=== PATIENT | male | born 1930 | race Caucasian/White ===

== ENCOUNTER 2017-03-30 13:21 | Inpatient (IN) | payer OTHER, MEDICARE ==
[~2017-03-30] VITALS: Ht 177.8 cm; Wt 90.8 kg
[~2017-03-30 13:21] MED LIST: ASPEC81 PO; ATOR-22 PO; CLBCR15 EXT; FINA5TAB PO; FRRG PO; METO25TA3 PO; MULT-506 PO; OMEG10007 PO; WARF1TAB PO
--- NOTE | 2017-03-30 14:38 | History and Physical ---
History & Physical Date & Time of Service: Mar 30, 2017 at 14:38 Chief Complaint: Pain In Belly/Gall Bladder Primary Care Physician: Lonnie Cheung D.O. Social History Smoking Status: Former Smoker Marital Status: Housing status: lives with family Occupational Status: retired Immunizations History of Influenza Vaccine: Yes History of Tetanus Vaccine?: Yes History of Pneumococcal: Yes History of Hepatitis B Vaccine: No Multi-Drug Resistant Organisms History of MDRO: No Allergies Coded Allergies: Levofloxacin (Verified Allergy, Intermediate, HIVES, 03/30/17) Home Medications Scheduled Aspirin (Aspirin Ec), 81 MG PO DAILY Atorvastatin (Lipitor), 20 MG PO QPM Clobetasol Propionate (Clobetasol Propionate), 1 APPLN TOP PRN Finasteride (Proscar), 5 MG PO DAILY Fish Oil ([place]-3), 1,400 MG PO DAILY Metoprolol Succ (Toprol Xl) (Toprol-Xl), 25 MG PO QAM Multivitamin (Multivitamin), 1 TAB PO DAILY Omeprazole (Prilosec), 20 MG PO DAILY Physical Exam Vital Signs Date Time Temp Pulse Resp B/P (MAP) Pulse Ox O2 Delivery O2 Flow Rate FiO2 03/30/17 14:28 61 18 177/58 91 Room Air 03/30/17 13:28 37.4 89 18 152/76 92 Room Air Impression Assessment and Plan admit #[id number]
[2017-03-30] MEDS ORDERED: ONDANSETRON INJ 2 MG/ML 2 ML VIAL IV PRN (14:45)
[2017-03-30] MEDS ORDERED: PRLSR20 PO (15:36)
[2017-03-30] MEDS ORDERED: ASPI81TA28 PO (15:37)
[2017-03-30] MEDS ORDERED: CLBPO15 TOP (15:37)
[2017-03-30 15:59] LABS: BASO % 0.1 %; BASO ABS # 0.01 K/uL (0-0.2); COMPLETE YES; HEMATOCRIT 46.4 % (42-52); IG% 0.1 %; LYMPH % 8.9 %; LYMPH ABS # 0.67 K/uL (1.2-3.4); MEAN CELL VOLUME 97.3 fL (80-100); MEAN CORPUSCULAR HEMOGLOBIN 32.5 pg (25-34); MEAN CORPUSCULAR HGB CONC 33.4 g/dl (32-36); MONO % 5.3 %; NEUT % 85.6 %; PLATELET COUNT 148 K/uL (130-400); RED BLOOD COUNT 4.77 M/uL (4.7-6.1); WHITE BLOOD COUNT 7.49 K/uL (4.8-10.8)
--- NOTE | 2017-03-30 16:04 | EMERGENCY ROOM VISIT NOTE ---
History First contact with patient: 13:36 Chief Complaint: ABDOMINAL PAIN Stated Complaint: PAIN IN BELLY/GALL BLADDER Nursing Triage Summary: Abdominal pain, nausea, an episode of vomiting last evening. states they were at [facility] yesterday and were told that his gallbladder is infected and needs to come out. History of Present Illness The patient is a 86 year old male who presents to the Emergency Room with complaints of upper abdominal pain associated with nausea and vomiting which began approximately 24 hours ago. The pain began yesterday late afternoon, early evening, and the patient was seen along [facility] for evaluation of his discomfort. He states he had a CT scan and labs completed while at [facility]. The patient was discharged from the hospital and instructed to follow up outpatient with his PCP. He did see his PCP this morning, and had a HIDA scan performed. This was suggestive of Acute cholecystitis and the patient was advised to go to whichever hospital he may wish to be admitted to for surgery and removal of the gallbladder. The patient states he decided to come to [facility]. His PCP to contact the ER regarding findings and plan at this time. He states he is now experiencing some minimal abdominal pain , but nothing like he experienced last night. He rates the pain 2-3/10 and describes it as achy. He states this morning, he did have an IV established and the lab work completed last night. The patient denies any chest pain, dizziness, nausea or vomiting at this time, difficulty breathing, headache, diarrhea, constipation, back pain, or other symptoms. He states his symptoms are that are now than they had been yesterday. He states yesterday, he was given "2 shots" for pain. He does report history of gallstones which were found "a few months ago" at [facility]. He states when he went home that night, he drank milk of magnesia and his symptoms improved until now. Review of Systems A complete 10 point review of systems was reviewed with the patient with pertinent positives and negatives as per history of present illness. All else were negative. Past Medical/Surgical History Medical Problems: (1) Cholecystitis Social History Smoking Status: Former Smoker Smokeless Tobacco Use: No Alcohol Use: none Drug Use: none Marital Status: Housing Status: lives with family Occupation Status: retired Current/Historical Medications Scheduled Aspirin (Aspirin Ec), 81 MG PO DAILY Atorvastatin (Lipitor), 20 MG PO QPM Clobetasol Propionate (Clobetasol Propionate), 1 APPLN TOP PRN Finasteride (Proscar), 5 MG PO DAILY Fish Oil ([place]-3), 1,400 MG PO DAILY Metoprolol Succ (Toprol Xl) (Toprol-Xl), 25 MG PO QAM Multivitamin (Multivitamin), 1 TAB PO DAILY Omeprazole (Prilosec), 20 MG PO DAILY Allergies None Physical Exam Vital Signs Date Time Temp Pulse Resp B/P (MAP) Pulse Ox O2 Delivery O2 Flow Rate FiO2 03/30/17 14:28 61 18 177/58 91 Room Air 03/30/17 13:28 37.4 89 18 152/76 92 Room Air Physical Exam VITALS: Vitals are noted on the nurse's note and reviewed by myself. Vital signs stable. GENERAL: This is a pleasant 86-year-old white male, in no acute distress, nondiaphoretic, well-developed well-nourished. SKIN: The skin was without rashes, erythema, edema, or bruising. There is no tenting of the skin. Capillary reflex less than 2 seconds. HEAD: Normocephalic atraumatic. EARS: External auditory canals clear, tympanic membranes pearly schmidt without erythema or effusion bilaterally. EYES: Pupils equal round and reactive to light and accommodation. Conjunctivae without injection, sclerae without icterus. Extraocular movements intact. NOSE: Patent, turbinates without inflammation or discharge. No sinus tenderness. MOUTH: Mucous membranes moist. Tonsils are not enlarged. Pharynx without erythema or exudate. Uvula midline. Airway patent. Tongue does not deviate. NECK: Supple without nuchal rigidity. No lymphadenopathy. No thyromegaly. Cervical spine is nontender. No JVD. HEART: Regular rate and rhythm without murmurs gallops or rubs. LUNGS: Clear to auscultation bilaterally without wheezes, rales or rhonchi. No dullness to percussion. No retractions or accessory muscle use. ABDOMEN: Positive bowel sounds x 4. Normal tympanic percussion. Tenderness noted in RUQ and Epigastric area. Distended, but soft, without masses or organomegaly. Jordan sign positive. No guarding or rebound tenderness. MUSCULOSKELETAL: No muscle atrophy, erythema, or edema noted. Full range of motion without joint tenderness in all extremities. No tenderness to palpation. Normal gait. Strength 5/5 throughout. NEURO: Patient was alert and oriented to person place and time. Normal sensation to light and sharp touch. Deep tendon reflexes 2+ throughout. No focal neurological deficits. Medical Decision & Procedures ER Provider Diagnostic Interpretation: Reviewed imaging studies performed outpatient at [facility]. HIDA scan did not visualize the gallbladder, however findings were consistent with cystic duct obstruction vs. acute cholecystitis. CT Scan with contrast was reviewed which did show cholecystitis with pericholecystic fluid. Pt's CBC yesterday revealed no acute anemia, thrombocytopenia, leukocytosis. CBC today reveals no acute anemia, leukocytosis, thrombocytopenia. CMP reveals elevated AST of 411, elevated ALT 235, and elevated Alk Phos of 150. Electrolytes and renal function without abnormalities. Laboratory Results Medical Decision This is an 86-year-old white male who has had a complete workup performed over the past 24 hours at [facility] in the emergency department and outpatient. At this time, his abdominal pain is minimal, however due to positive imaging studies, he was sent emergency Department for admission and possible surgery for acute cholecystitis. I did contact [facility] to obtain reports, which were faxed here. I reviewed all records from the patient's ED visit last night. Due to findings consistent with acute cholecystitis, I consulted with Dr. Correa, the general surgeon, regarding admitting the patient and he states he will see the patient today, but perform the procedure tomorrow. He requested that the patient be admitted under the hospitalist group. I spoke with [facility] Hospitalists regarding admission and they agree to admit the patient. Basic labs were drawn and an IV established. The hospitalist states he will handle management overnight until surgery tomorrow. Please see the hospitalist dictation for further management and care. Differential diagnosis includes: Acute cholecystitis, gallstones, pancreatitis, cholangitis, acute gastroenteritis, hepatic disease, GERD, and others. Medication Reconcilliation Current Medication List: was personally reviewed by me Blood Pressure Screening Patient's blood pressure: Normal blood pressure Impression Primary Impression: Acute cholecystitis Departure Information Dispostion Admitted as an inpatient Condition GOOD Referrals Lonnie Cheung D.O. (PCP) Patient Instructions My [facility]
--- NOTE | 2017-03-30 16:06 | Surgery Consultation ---
Consultation Date of Consultation: Mar 30, 2017. Attending Physician: History of Present Illness pt is a 86 year old male who presents to ER for 1 day RUQ pain with nausea and vomiting, the pain is sharp. the pain is located at RUQ, pt denies fever, no chest pain, no diarrhea, pt had CT scan and HIDA scan at other hospital DX acute cholecystitis, pt comes to this hospital for cholecystectomy. Social History Smoking Status: Former Smoker Smokeless Tobacco Use: No Alcohol Use: occasionally Drug Use: none Marital Status: Occupation Status: retired Allergies Coded Allergies: Levofloxacin (Verified Allergy, Intermediate, HIVES, 03/30/17) Home Medications Scheduled Aspirin (Aspirin Ec), 81 MG PO DAILY Atorvastatin (Lipitor), 20 MG PO QPM Clobetasol Propionate (Clobetasol Propionate), 1 APPLN TOP PRN Finasteride (Proscar), 5 MG PO DAILY Fish Oil ([place]-3), 1,400 MG PO DAILY Metoprolol Succ (Toprol Xl) (Toprol-Xl), 25 MG PO QAM Multivitamin (Multivitamin), 1 TAB PO DAILY Omeprazole (Prilosec), 20 MG PO DAILY Current Inpatient Medications Current Inpatient Medications Medications (Trade) Dose Ordered Sig/Nayely Route Start Time Stop Time Status Last Admin Dose Admin Ondansetron HCl (Zofran Inj) 4 mg Q6H PRN IV 03/30/17 14:45 04/29/17 14:44 Ampicillin Sodium/ Sulbactam Sodium 1500 mg/Sodium Chloride 104 ml @ 200 mls/hr Q6H IV 03/30/17 14:45 04/09/17 14:44 UNV Metoprolol Succinate (Toprol Xl Tab) 25 mg QAM PO 03/31/17 09:00 04/30/17 08:59 Multivitamins (Multivitamin Tab) 1 tab DAILY PO 03/31/17 09:00 04/30/17 08:59 Miscellaneous Information (Order Awaiting Action) 1 ea QS N/A 03/31/17 08:00 04/30/17 07:59 Potassium Chloride/Sodium Chloride 1,000 ml @ 110 mls/hr Q9H6M IV 03/30/17 15:15 04/29/17 15:14 UNV Morphine Sulfate (MoRPHine SULFATE INJ) 2 mg Q4 PRN IV 03/30/17 15:15 04/13/17 15:14 Review of Systems Constitutional: No fever, No chills, No sweats, No weight loss, No weakness, No fatigue, No problem reported Eyes: No worsening of vision, No eye pain, No redness, No discharge, No diplopia, No problem reported ENT: No hearing loss, No unusual epistaxis, No nasal symptoms, No sore throat, No tinnitus, No dental problems, No trouble swallowing, No problem reported Respiratory: No cough, No sputum, No wheezing, No shortness of breath, No dyspnea on exertion, No dyspnea at rest, No hemoptysis, No problem reported Cardiovascular: No chest pain, No orthopnea, No PND, No edema, No claudication , No palpitations, No problem reported Abdomen: + pain, + nausea, + vomiting Musculoskeletal: No joint pain, No muscle pain, No swelling, No calf pain, No problem reported Genitourinary - Male: No hematuria, No dysuria, No urinary frequency, No urinary urgency, No urinary hesitancy, No urinary retention, No urinary incontinence, No penile discharge, No lesions, No impotence, No problem reported Neurologic: No memory loss, No paralysis, No weakness, No numbness/tingling, No vertigo, No balance problems, No problem reported Psychiatric: No depression symptoms, No anhedonism, No anxiety, No insomnia, No substance abuse, No problem reported Endocrine: No fatigue, No excessive thirst, No excessive urination, No problem reported Hematologic / Lymphatic: No abnormal bleeding/bruising, No clotting problems, No swollen lymph nodes, No night sweats, No problem reported Physical Exam Date Time Temp Pulse Resp B/P (MAP) Pulse Ox O2 Delivery O2 Flow Rate FiO2 03/30/17 14:28 61 18 177/58 91 Room Air 03/30/17 13:28 37.4 89 18 152/76 92 Room Air General Appearance: WD/WN, + mild distress Head: normocephalic Eyes: normal inspection ENT: normal ENT inspection Neck: supple, no JVD Respiratory/Chest: chest non-tender, lungs clear, normal breath sounds, no respiratory distress Cardiovascular: regular rate, rhythm, no edema, no gallop, no JVD, no murmur Abdomen/GI: normal bowel sounds, soft, + tenderness (Tenderness at RUQ, no rebound pain, ) Extremities/Musculoskelatal: normal inspection, no calf tenderness, normal capillary refill Neurologic/Psych: no motor/sensory deficits, alert, normal mood/affect Skin: normal color, warm/dry, no rash Laboratory Results Last 24 Hours Test 03/30/17 15:33 Assessment & Plan pt is a 86 jayna old male with one day history RUQ pain, pt had CT scan and HIDA scan- acute cholecystitis, Plan, pt will be admitted ti hospital by hospitalist, I recommend to do laparoscopic cholecystectomy, possible open or cholangiogram tomorrow, D/W benefits, risks and alternatives of the procedure, the risks - infection, bleeding, injury CBD, Bowel, NC, stroke, DVT, , pt and his understood, they agree with [facility] plan, I answered all questions, EKG, IV antibiotic, contorl pain, NPO MN
[2017-03-30 16:20] VITALS: BP 158/75; PULSE 69; TEMP 37.4; TEMP 38.1; O2SAT 91; Ht 177.8 cm; Wt 90.8 kg
[2017-03-30 16:25] LABS: ALB/GLOB RATIO 0.9 (0.9-2); BUN/CREATININE RATIO 23.1 (10-20); CALCIUM 9.3 mg/dl (8.5-10.1); CREATININE 1.01 mg/dl (0.60-1.40); POTASSIUM 4.4 mmol/L (3.5-5.1)
[2017-03-30 16:55] LABS: INR 1.1 (0.9-1.1); PARTIAL THROMBOPLASTIN RATIO 1.2; PROTHROMBIN TIME (PATIENT) 11.6 SECONDS (9.0-12.0)
--- NOTE | 2017-03-30 17:12 | HISTORY & PHYSICAL EXAMINATION ---
DATE OF ADMISSION: 03/30/2017 CHIEF COMPLAINT: Right upper abdominal pain. HISTORY OF PRESENT ILLNESS: The patient is a pleasant 86-year-old male who was in his usual state of health until late yesterday afternoon. Maybe around 05:00 or so, he noted some right lower rib cage pain and then it progressed to lower in his abdomen. It is fairly sharp, fairly intense and it caused him to break out in a sweat. He does not note nausea or vomiting. He does not note fevers or chills. He was at a meeting. He had his friend bring him home from the meeting and he was just generally not feeling well afterwards. He then had a prompt evaluation by his PCP including HIDA scan and the HIDA scan was consistent with cholecystitis. His PCP contacted him to come to the ER and here, currently his pain is under control. He is not diaphoretic. He does not have any nausea. He does not have any chest pain. REVIEW OF SYSTEMS: Negative for anything even remotely reminiscent of his cardiac symptoms. He denies any newer worse shortness of breath with exertion in the recent past. REVIEW OF SYSTEMS: Otherwise negative, except for as above. PAST MEDICAL HISTORY: Includes coronary artery disease with an MO in 1995 and CABG in 2002, osteoarthritis, BPH status post TURP, hyperlipidemia, skin cancer, sleep apnea and hypertension. PAST SURGICAL HISTORY: CABG, orthopedic surgeries including a left total knee and right total knee, eyelid surgery, right hand cyst removal and a TURP. ALLERGIES: None. FAMILY HISTORY: None of significance. Particularly, he denies biliary disease. SOCIAL HISTORY: No notable significant tobacco, alcohol or drugs. Lives in the [place] area. MEDICATIONS: Finasteride 5 mg daily, metoprolol succinate 25 mg I believe daily, atorvastatin 20 mg daily, aspirin 81 mg daily, multivitamin daily, Krill oil with omega-3 at 500 mg, clobetasol cream as needed and omeprazole 20 mg I believe daily. ALLERGIES: INCLUDE LEVOFLOXACIN. PHYSICAL EXAMINATION: VITAL SIGNS: Temperature 37.4, pulse 89, respiratory rate 18, blood pressure 152/76 and 92% on room air. GENERAL: He is awake, alert, and oriented x3, pleasant, in no acute distress. HEENT: Normocephalic and atraumatic. Mucous membranes are moist. CARDIOVASCULAR: Regular without rubs, murmurs, or gallops. LUNGS: Clear to auscultation bilaterally. No rales, rhonchi, or wheezes with good effort. ABDOMEN: Soft and nondistended, but he does have right upper quadrant tenderness to palpation including a bit of involuntary guarding on even medium palpation. There is fortunately no resting rigidity and the remainder of his abdomen is benign. EXTREMITIES: Show no cyanosis, clubbing or edema. No calf tenderness. SKIN: Shows no rashes. No pallor or icterus. NEUROLOGIC: Shows cranial nerves II through XII to be grossly intact. Gross motor and sensory are intact. MENTAL STATE: Shows good recent and remote recall. Normal mood and affect. Good judgment and insight. MUSCULOSKELETAL: Shows no gross lesions. LABS AND DIAGNOSTICS: Pending at time of my evaluation. By report, he has a markedly positive HIDA scan. We will ask for records on this. ASSESSMENT AND PLAN: 1. Acute cholecystitis both by symptoms and by HIDA. We will check CBC and CMP to evaluate for anything more ominous, such as signs or symptoms of cholangitis. Fortunately without any overt jaundice or fevers, it is highly unlikely. We will initiate Unasyn as the recommendation of surgery cover him with antibiotics. We will consult general surgery with anticipation of cholecystectomy and keep him n.p.o. Depending on his labs and his clinical course, obviously further recommendations will be made throughout his stay. 2. Coronary artery disease. Fortunately, this appears to be extremely stable and he appears to be a very medically acceptable probably moderate to low moderate risk for surgery. Would continue his metoprolol and it appears okay to hold his aspirin and Lipitor for now, would resume them postop as quickly as he is safe. 3. Hyperlipidemia. Continue his Lipitor. 4. Hypertension. Continue his metoprolol. 5. Benign prostatic hypertrophy. Hold finasteride for now. Resume it postop once he is able to take p.o. 6. Deep venous thrombosis prophylaxis, Lovenox. Okay to hold for surgery.
[2017-03-30] MEDS: SODIUM CHLOR 0.45% + 20MEQ KCL 1,000 ML IV SCH (17:19)
[2017-03-30 17:22] VITALS: TEMP 39.4
[2017-03-30] MEDS ORDERED: ACETAMINOPHEN 325 MG TAB ONE (17:26)
--- NOTE | 2017-03-30 17:31 | Surgery Progress Note ---
Surgery Progress Note Date of Service Mar 30, 2017. Subjective pt's Total Bilirubin is 3.6 Objective Vital Signs: Date Time Temp Pulse Resp B/P (MAP) Pulse Ox O2 Delivery O2 Flow Rate FiO2 03/30/17 16:20 38.1 69 18 158/75 91 Room Air 03/30/17 16:20 91 Room Air 03/30/17 16:20 37.4 69 18 158/75 (102) 91 Room Air 03/30/17 16:01 63 18 173/56 93 Room Air 03/30/17 14:28 61 18 177/58 91 Room Air 03/30/17 13:28 37.4 89 18 152/76 92 Room Air General Appearance: WD/WN, + mild distress Head: normocephalic Neck: supple, no JVD Respiratory/Chest: chest non-tender, lungs clear Cardiovascular: regular rate, rhythm, no edema, no gallop, no JVD, no murmur Abdomen: + tenderness (at RUQ) Laboratory Results: Results Past 24 Hours Test 03/30/17 15:33 03/30/17 16:30 Range/Units White Blood Count 7.49 4.8-10.8 K/uL Red Blood Count 4.77 4.7-6.1 M/uL Hemoglobin 15.5 14.0-18.0 g/dL Hematocrit 46.4 42-52 % Mean Corpuscular Volume 97.3 80-100 fL Mean Corpuscular Hemoglobin 32.5 25-34 pg Mean Corpuscular Hemoglobin Concent 33.4 32-36 g/dl Platelet Count 148 130-400 K/uL Mean Platelet Volume 10.0 7.4-10.4 fL Neutrophils (%) (Auto) 85.6 % Lymphocytes (%) (Auto) 8.9 % Monocytes (%) (Auto) 5.3 % Eosinophils (%) (Auto) 0.0 % Basophils (%) (Auto) 0.1 % Neutrophils # (Auto) 6.40 1.4-6.5 K/uL Lymphocytes # (Auto) 0.67 1.2-3.4 K/uL Monocytes # (Auto) 0.40 0.11-0.59 K/uL Eosinophils # (Auto) 0.00 0-0.5 K/uL Basophils # (Auto) 0.01 0-0.2 K/uL RDW Standard Deviation 51.7 36.4-46.3 fL RDW Coefficient of Variation 14.5 11.5-14.5 % Immature Granulocyte % (Auto) 0.1 % Immature Granulocyte # (Auto) 0.01 0.00-0.02 K/uL Sodium Level 138 136-145 mmol/L Potassium Level 4.4 3.5-5.1 mmol/L Chloride Level 102 98-107 mmol/L Carbon Dioxide Level 28 21-32 mmol/L Anion Gap 8.0 3-11 mmol/L Blood Urea Nitrogen 23 7-18 mg/dl Creatinine 1.01 0.60-1.40 mg/dl Est Creatinine Clear Calc Drug Dose 61.7 ml/min Estimated GFR () 78.8 Estimated GFR (Non- 68.0 BUN/Creatinine Ratio 23.1 10-20 Random Glucose 173 70-99 mg/dl Calcium Level 9.3 8.5-10.1 mg/dl Total Bilirubin 3.6 0.2-1 mg/dl Aspartate Amino Transf (AST/SGOT) 411 15-37 U/L Alanine Aminotransferase (ALT/SGPT) 235 12-78 U/L Alkaline Phosphatase 150 45-117 U/L Total Protein 7.6 6.4-8.2 gm/dl Albumin 3.6 3.4-5.0 gm/dl Globulin 4.0 2.5-4.0 gm/dl Albumin/Globulin Ratio 0.9 0.9-2 Chemistry Specimen Hemolysis Prothrombin Time 11.6 9.0-12.0 SECONDS Prothromb Time International Ratio 1.1 0.9-1.1 Activated Partial Thromboplast Time 30.6 21.0-31.0 SECONDS Partial Thromboplastin Ratio 1.2 Assessment & Plan Base on (T ) bilirubin is 3.6, and pt has T 39.4 DX CBD stone, cholangitis tylenol 650 mg po q6h prn for T>38.5 start Zosyn 3.375 gm IV q6h GI consult for ERCP cancel lap masood for tomorrow, repeat labs in am,
[2017-03-30] MEDS ORDERED: ACETAMINOPHEN 325 MG TAB PO ONE (17:45)
[2017-03-30] MEDS ORDERED: PIPERACILL/TAZOBAC CONSULT ACTIVE PRN (17:45)
[2017-03-30] MEDS ORDERED: PIPERACILL/TAZOBAC IV 3.375 GM in DEXTROSE 5% 100ML 100 ML IV ONE (18:00)
[2017-03-30] MEDS ORDERED: AMPICILLIN/SULBACTAM SOD INJ 1,500 MG in SODIUM CHLORIDE 0.9% 100ML 100 ML IV SCH (18:00)
[2017-03-30 18:10] VITALS: TEMP 38.6
[2017-03-30] MEDS ORDERED: MoRPHine SULFATE 4 MG/ML 1 ML CARP\\VIAL IV PRN (19:00)
[2017-03-30] MEDS: MoRPHine SULFATE 2 MG/ML CARP IV PRN (19:04)
--- NOTE | 2017-03-30 20:35 | Progress Note ---
Progress Note Date of Service Mar 30, 2017. Progress Note d/w dr buckley - fever, elevated bilirubin - we are both in agreement that cholangitis appearing to be working dx with those two new findings. GI consulted for biliary eval/treat, abx broadened to zosyn pt seen/revisited, explained how fever and bili change situation. he expresses understanding, clinically continues to appear stable. dtr had called asking to speak to me - he gave permission called dtr tia sin - [facility] in [place]. gave callback # as [phone] - answering person introduced themselves as Dr Sin's answering service, although was able to quickly get pt's dtr. 15+ min call. initially she was very wary of care, feeling like things might be being rushed and noting that she was afraid of her father having ERCP, "i've seen terrible pancreatitis after ERCPs, where people are in the hospital for four months" and asking if we had capabilities to do needed procedures and/or MRCP if necessary -i discussed her father's situation, and that typically w cholangitis, abx and ERCP is preferred treatment, and then often cholecystectomy is delayed either during the hospital stay or even as outpt a few weeks later. discussed that ERCP done here commonly, and that while i don't know our exact complication rates, i rarely take care of post-ERCP pancreatitis and the cases i remember here have been mild. d/w her that GI eval needs to take place and then decision will be made for MRCP vs ERCP. after several minutes, her tone softened and she appeared to feel more comfortable with care here. expressed appreciation of call. d/w GI who will eval and determine next steps w ERCP vs MRCP pt stable.
--- NOTE | 2017-03-30 20:46 | Gastrointestinal Consultation ---
Gastrointestinal Consultation Date of Consultation: Mar 30, 2017 History of Present Illness Patient is a 86 year old male who presented from [place] with a one day hx of ruq abdominal pain. He states that over the last few months this is is second attack of acute onset ruq abdominal pain, pain sudden onset, radiates across his abdomen and has persisted in a crescendo/decrescendo pattern. Has accompanied nausea without emesis, no diarrhea, melena. HE also c/o of fevers, mild chills, and bloating. He presented to ER last shahnaz at [place], underwent CT with ? acute cholecystitis, and Labs other than WBC ct were normal. WBC was 10, bilirubin was 1.1 and AST/ALT/AP were normal. He was discharged from ER last shahnaz, he returned to Hospital this morn for a HIDA scan, this failed to show filling of the cystic duct and he elected to come to [facility] for further care. Labs here show increase of bilirubin to 3.6, AST/ALT/AP all elevated and he has now developed fevers. No mental status changes, no hemodynamic changes. Past Medical/Surgical History Medical Problems: (1) Acute cholecystitis Status: Acute Social History Smoking Status: Never Smoker Alcohol Use: none Drug Use: none Marital Status: Housing Status: lives with family Occupation Status: retired Allergies Coded Allergies: Levofloxacin (Verified Allergy, Intermediate, HIVES, 03/30/17) Current Medications Home Meds and Scripts Medications Dose Route/Sig Max Daily Dose Days Date Category Aspirin Ec (Aspirin) 81 Mg Tab 81 Mg PO DAILY 03/30/17 Reported Clobetasol Propionate 45 Appln/15 Gm Oint 1 Appln TOP PRN 03/30/17 Reported Prilosec (Omeprazole) 20 Mg Capcr 20 Mg PO DAILY 03/30/17 Reported Proscar (Finasteride) 5 Mg Tab 5 Mg PO DAILY 01/23/14 Reported [place]-3 (Fish Oil) 1 Ea Cap 1,400 Mg PO DAILY 09/26/10 Reported Multivitamin (Multivitamins) Tab 1 Tab PO DAILY 09/26/10 Reported Lipitor (Atorvastatin Calcium) 20 Mg Tab 20 Mg PO QPM 09/26/10 Reported Toprol-Xl (Metoprolol Succinate) 25 Mg Tabcr 25 Mg PO QAM 09/26/10 Reported Review of Systems Constitutional: + see HPI Eyes: No see HPI, No worsening of vision, No eye pain, No redness, No discharge , No diplopia, No problem reported ENT: No see HPI, No hearing loss, No unusual epistaxis, No nasal symptoms, No sore throat, No tinnitus, No dental problems, No trouble swallowing, No pain on swallowing, No problem reported Respiratory: No see HPI, No cough, No sputum, No wheezing, No shortness of breath, No dyspnea on exertion, No dyspnea at rest, No hemoptysis, No problem reported Cardiac: No see HPI, No chest pain, No orthopnea, No PND, No edema, No claudication, No palpitations, No problem reported Abdomen: + see HPI, No pain, No nausea, No vomiting, No diarrhea, No constipation, No GI bleeding, No dysphagia, No odynophagia, No acolic stools, No jaundice, No dark urine, No problem reported Psych: No see HPI, No depression symptoms, No anhedonism, No anxiety, No insomnia, No substance abuse, No problem reported Physical Exam Date Time Temp Pulse Resp B/P (MAP) Pulse Ox O2 Delivery O2 Flow Rate FiO2 03/30/17 18:10 38.6 03/30/17 17:22 39.4 03/30/17 16:20 38.1 69 18 158/75 91 Room Air 03/30/17 16:20 91 Room Air 03/30/17 16:20 37.4 69 18 158/75 (102) 91 Room Air 03/30/17 16:01 63 18 173/56 93 Room Air 03/30/17 14:28 61 18 177/58 91 Room Air 03/30/17 13:28 37.4 89 18 152/76 92 Room Air General Appearance: WD/WN, no apparent distress Eyes: normal inspection Neck: supple Respiratory/Chest: chest non-tender, lungs clear Cardiovascular: regular rate, rhythm, no edema Abdomen: normal bowel sounds, soft, + pertinent finding (mild tenderness in the RUQ) Extremities: normal range of motion Neurologic/Psych: mailmaster II-XII nml as tested Laboratory Results Last 24 Hours Test 03/30/17 15:33 03/30/17 16:30 White Blood Count 7.49 K/uL Red Blood Count 4.77 M/uL Hemoglobin 15.5 g/dL Hematocrit 46.4 % Mean Corpuscular Volume 97.3 fL Mean Corpuscular Hemoglobin 32.5 pg Mean Corpuscular Hemoglobin Concent 33.4 g/dl Platelet Count 148 K/uL Mean Platelet Volume 10.0 fL Neutrophils (%) (Auto) 85.6 % Lymphocytes (%) (Auto) 8.9 % Monocytes (%) (Auto) 5.3 % Eosinophils (%) (Auto) 0.0 % Basophils (%) (Auto) 0.1 % Neutrophils # (Auto) 6.40 K/uL Lymphocytes # (Auto) 0.67 K/uL Monocytes # (Auto) 0.40 K/uL Eosinophils # (Auto) 0.00 K/uL Basophils # (Auto) 0.01 K/uL RDW Standard Deviation 51.7 fL RDW Coefficient of Variation 14.5 % Immature Granulocyte % (Auto) 0.1 % Immature Granulocyte # (Auto) 0.01 K/uL Sodium Level 138 mmol/L Potassium Level 4.4 mmol/L Chloride Level 102 mmol/L Carbon Dioxide Level 28 mmol/L Anion Gap 8.0 mmol/L Blood Urea Nitrogen 23 mg/dl Creatinine 1.01 mg/dl Est Creatinine Clear Calc Drug Dose 61.7 ml/min Estimated GFR () 78.8 Estimated GFR (Non- 68.0 BUN/Creatinine Ratio 23.1 Random Glucose 173 mg/dl Calcium Level 9.3 mg/dl Total Bilirubin 3.6 mg/dl Aspartate Amino Transf (AST/SGOT) 411 U/L Alanine Aminotransferase (ALT/SGPT) 235 U/L Alkaline Phosphatase 150 U/L Total Protein 7.6 gm/dl Albumin 3.6 gm/dl Globulin 4.0 gm/dl Albumin/Globulin Ratio 0.9 Chemistry Specimen Hemolysis Prothrombin Time 11.6 SECONDS Prothromb Time International Ratio 1.1 Activated Partial Thromboplast Time 30.6 SECONDS Partial Thromboplastin Ratio 1.2 Impression Patient is a 86 year old male with acute onset of ruq abdominal pain and concern of acute cholecystitis and likely biliary obstruction. In the last 24 hrs has had increasing LFT's as well as developed a fever, concerning for biliary obstruction. CT scan does not comment on biliary tree, but given his clinical findings, he has a high probability of biliary obstruction. Plan 1. Continue IVF and NPO 2. IV abx has been given with Zosyn 3. Plan for ERCP in the 7:[address] Toledo If has clinical decline, please call GI vice president mission integration for assistance and will expedite ERCP Call with questions
[2017-03-30 22:45] VITALS: BP 123/66; PULSE 76; TEMP 36.8; O2SAT 94
[2017-03-31] VITALS (10 sets, daily range): BP systolic 124–164; BP diastolic 37–75; PULSE 52–78; TEMP 36.4–37.1; O2SAT 91–98
[2017-03-31] MEDS: SODIUM CHLOR 0.45% + 20MEQ KCL 1,000 ML IV SCH (02:03)
--- NOTE | 2017-03-31 02:13 | EMERGENCY ROOM VISIT NOTE ---
ED Visit Note First contact with patient: 13:36 HPI: 86M with dx of cholecystitis on OSH CT and HIDA scan. Plan: PA d/w surgery with planned procedure for tomorrow. Admit. IVF, ABX. I reviewed the patient's past medical history, medications, and visit nursing notes. I discussed the case with the physician home care assistant and agree with the findings and plan as documented in the physician assistants note.
[2017-03-31] MEDS ORDERED: EpHEDrine SULFATE INJ 50 MG/ML AMP IV PRN (07:15)
[2017-03-31] MEDS ORDERED: FENTANYL CITRATE INJ 50 MCG/1 ML 2 ML VIAL IV PRN (07:15)
[2017-03-31] MEDS ORDERED: ONDANSETRON INJ 2 MG/ML 2 ML VIAL IV PRN (07:15)
[2017-03-31] MEDS ORDERED: ATROPINE SULFATE 0.1 MG/ML 5ML SYR IV PRN (07:15)
[2017-03-31] MEDS ORDERED: HYDROmorphone INJ 1 MG/ML SYR IV PRN (07:15)
[2017-03-31] MEDS ORDERED: FENTANYL CITRATE INJ 50 MCG/1 ML 2 ML VIAL ONE (07:56)
--- NOTE | 2017-03-31 07:56 | History & Physical Bridge Note ---
H&P Re-Evaluation Bridge Note: I have examined the patient, reviewed the History & Physical and in the interval since the performance of the History & Physical I have noted the following changes of clinical significance: No changes noted
[2017-03-31] MEDS ORDERED: INDOMETHACIN 50 MG SUPP PR ONE ×2 (07:58→08:00)
[2017-03-31] MEDS: PIPERACILL/TAZOBAC IV 3.375 GM in DEXTROSE 5% 100ML 100 ML IV SCH ×5 (08:00→23:24)
[2017-03-31 08:19] LABS: ALB/GLOB RATIO 0.9 (0.9-2); BUN/CREATININE RATIO 24.1 (10-20); CALCIUM 8.6 mg/dl (8.5-10.1); CREATININE 1.11 mg/dl (0.60-1.40); POTASSIUM 4.4 mmol/L (3.5-5.1)
[2017-03-31] MEDS ORDERED: SUCCINYLCHOLINE CHLORIDE 20 MG/ML 10 ML VIAL IV ONE (08:31)
[2017-03-31] MEDS ORDERED: ONDANSETRON INJ 2 MG/ML 2 ML VIAL ONE (08:31)
[2017-03-31] MEDS ORDERED: LIDOCAINE HCL 2% 2 ML VIAL (20MG/ML) ONE (08:31)
[2017-03-31] MEDS ORDERED: PROPOFOL IV EMULSION 10 MG/ML 20 ML VIAL IV ONE (08:31)
[2017-03-31] MEDS: ENOXAPARIN 40 MG/0.4 ML SYR SQ SCH (09:00)
[2017-03-31] MEDS: METOPROLOL SUCC 25MG EXT REL TAB PO SCH ×2 (09:00→14:24)
[2017-03-31] MEDS: MULTIVITAMIN TAB PO SCH (09:00)
--- NOTE | 2017-03-31 10:24 | DIAGNOSTIC IMAGING REPORT ---
ERCP BILIARY DUCTAL CLINICAL HISTORY: Intraoperative ERCP. Patient in need of pancreatic stenting. COMPARISON STUDY: None FLUOROSCOPY TIME: 3 minutes 11 seconds. NUMBER OF FLUOROSCOPIC IMAGES: 18 FINDINGS: Fluoroscopic spot images from an ERCP are provided for interpretation. The pancreatic duct was cannulated and a pancreatic enteric stent was placed. The common bile duct was then cannulated. Initial images demonstrate irregular filling defects within the common bile duct. A sphincterotomy appears to have been performed. A balloon catheter was inflated within the common bile duct and swept through the duct. IMPRESSION: Fluoroscopic spot images performed during ERCP. A pancreatic enteric stent was placed. Electronically signed by: Rupert Horvath M.D. 03/31/2017 10:22 AM Dictated Date/Time: 03/31/2017 10:20 AM
--- NOTE | 2017-03-31 10:43 | Anesthesiology Progress Note ---
Anesthesia Post Op Note Date & Time Mar 31, 2017 at 10:42 Vital Signs Pain Intensity: 0 Vital Signs Past 12 Hours Date Time Temp Pulse Resp B/P (MAP) Pulse Ox O2 Delivery O2 Flow Rate FiO2 03/31/17 10:35 37.0 61 14 151/80 93 Room Air 03/31/17 10:25 62 12 153/89 99 Oxymask 2 03/31/17 10:15 63 12 169/72 99 Oxymask 10 03/31/17 10:07 36.4 95 16 165/77 97 Oxymask 10 03/31/17 07:18 36.9 62 17 124/69 (87) 92 Room Air 03/31/17 00:05 Room Air 03/30/17 22:45 36.8 76 14 123/66 (85) 94 Room Air Notes Mental Status: alert / awake / arousable, participated in evaluation Pt Amnestic to Procedure: Yes Nausea / Vomiting: adequately controlled Pain: adequately controlled Airway Patency, RR, SpO2: stable & adequate BP & HR: stable & adequate Hydration State: stable & adequate Anesthetic Complications: no major complications apparent
--- NOTE | 2017-03-31 10:51 | GI REPORT ---
Procedure Date: 03/31/2017 8:05 AM Procedure: ERCP Indications: For therapy of ascending cholangitis, Jaundice Medicines: General Anesthesia, Indomethicin 100 mg rectal Complications: No immediate complications. Estimated blood loss: None Estimated Blood Loss: Estimated blood loss: none. Procedure: Pre-Anesthesia Assessment: - Prior to the procedure, a History and Physical was performed, and patient medications, allergies and sensitivities were reviewed. The patient's tolerance of previous anesthesia was reviewed. - ASA Grade Assessment: III - A patient with severe systemic disease. After obtaining informed consent, the scope was passed under direct vision. Throughout the procedure, the patient's blood pressure, pulse, and oxygen saturations were monitored continuously. The SCOPE was introduced through the mouth, and advanced to the duodenum and used to inject contrast into the bile duct and ventral pancreatic duct. The ERCP was unusually difficult due to challenging cannulation because of papillary stenosis. The patient tolerated the procedure well. Findings: The provider scribe film was normal. The esophagus was successfully intubated under direct vision without detailed examination of the pharynx, larynx, and associated structures, and upper GI tract. The upper GI tract was grossly normal. The major papilla was small. The papilla could not be engaged with the Juanito Cook 0.035 Omnitome. This was exchanged for a Microvasive RX39 sphincterotome. which allowed opacification of the ventral pancreatic duct in the head of the pancreas. A Juanito Cook Acrobat 0.025 inch guidewire was passed into the ventral pancreatic duct. After a failed attempt to cannulate the bile duct using double wire technique, a 5 Fr by 5 cm plastic stent with a full external pigtail and no internal flaps was placed 4 cm into the ventral pancreatic duct. Clear fluid flowed through the stent(s). The stent was in good position. A 5 mm biliary sphincterotomy was made with a monofilament needle knife over the pancreatic stent using ERBE electrocautery. There was no post-sphincterotomy bleeding. Juanito Cook Acrobat 0.025 inch guidewire was passed through the Microvasive RX39 sphincterotome into the biliary tree. The biliary sphincterotomy was exended with a monofilament traction (standard) sphincterotome using ERBE electrocautery. There was no post-sphincterotomy bleeding. The biliary tree was swept with a 9 mm balloon starting at the bifurcation. Pus, sludge, and small stones were swept from the duct. No stones remained. The duct was then irrigated with saline. The total fluoroscopy exposure time was 3 minutes and 11 seconds. Impression: - Papillary stenosis. - One temporary stent was placed into the ventral pancreatic duct. - Choledocholithiasis and pus was found in the bile duct. Complete removal was accomplished by biliary sphincterotomy with needle knife and standard sphincterotome followed by balloon extraction. Recommendation: - Return patient to hospital [facility]azo for ongoing care. - Surgical consultation for consideration of cholecystectomy at appointment to be scheduled. Bowen Toledo M.D. Bowen Toledo MD 03/31/2017 10:51:24 AM This report has been signed electronically. Note Initiated On: 03/31/2017 8:05 AM I attest to the content of the Intraoperative Record and orders documented therein, exceptions below
--- NOTE | 2017-03-31 10:58 | [facility] Operative Report ---
Operative Report Operative Date Mar 31, 2017. Pre-Operative Diagnosis Jaundice, cholecystitis Post-Operative Diagnosis Same as preop Procedure(s) Performed Endoscopic Retrograde Cholangiopancreatography with papillotomy, stone extraction, and placement of pancreatic stent Surgeon Dr. Toledo Charge Entry Clerk Surgeon(s) None Estimated Blood Loss 0 ml Findings Papillary stenosis, choangitis, choledocholithiasis. Fluids See anesthesia note Specimens None per Surgeon Drains None Anesthesia General Complication(s) None Disposition Recovery Room / PACU Indications Cholangitis and jaundice Description of Procedure See Provation report. I attest to the content of the Intraoperative Record and any orders documented therein. Any exceptions are noted below.
[2017-03-31] MEDS ORDERED: GLUCAGON FOR INJ 1 MG VIAL ONE ×2 (11:10)
[2017-03-31] MEDS: D5W AND LACTATED RINGERS 1,000 ML IV SCH ×2 (11:51→18:46)
--- NOTE | 2017-03-31 20:00 | Surgery Progress Note ---
Surgery Progress Note Date of Service Mar 31, 2017. Subjective + feeling well pt had ERCP done today, stone and pus came out from CBD, pt is doing better, no abdominal pain, now, no nausea, no vomiting, Objective Vital Signs: Date Time Temp Pulse Resp B/P (MAP) Pulse Ox O2 Delivery O2 Flow Rate FiO2 03/31/17 19:12 36.4 59 18 127/63 (84) 92 Room Air 03/31/17 16:00 Room Air 03/31/17 15:12 36.5 65 18 137/68 (91) 91 Room Air 03/31/17 13:55 36.9 59 18 148/37 (74) 94 Room Air 03/31/17 13:00 37.1 59 16 164/72 (102) 94 Room Air 03/31/17 11:54 36.9 61 16 148/73 (98) 91 Room Air 03/31/17 11:25 78 20 152/75 (100) 98 03/31/17 10:59 36.8 61 18 155/75 (101) 94 Room Air 03/31/17 10:55 94 Room Air 03/31/17 10:55 Room Air 03/31/17 10:45 60 14 150/82 93 Room Air 03/31/17 10:35 37.0 61 14 151/80 93 Room Air 03/31/17 10:25 62 12 153/89 99 Oxymask 2 03/31/17 10:15 63 12 169/72 99 Oxymask 10 03/31/17 10:07 36.4 95 16 165/77 97 Oxymask 10 03/31/17 07:18 36.9 62 17 124/69 (87) 92 Room Air 03/31/17 00:05 Room Air 03/30/17 22:45 36.8 76 14 123/66 (85) 94 Room Air General Appearance: WD/WN Head: normocephalic Neck: supple, no JVD Respiratory/Chest: chest non-tender, lungs clear Cardiovascular: regular rate, rhythm, no edema, no gallop, no JVD Abdomen: normal bowel sounds, non tender, non distended, soft Extremities: normal range of motion, non-tender, normal inspection Laboratory Results: Results Past 24 Hours Test 03/31/17 06:50 Range/Units Sodium Level 138 136-145 mmol/L Potassium Level 4.4 3.5-5.1 mmol/L Chloride Level 105 98-107 mmol/L Carbon Dioxide Level 27 21-32 mmol/L Anion Gap 5.0 3-11 mmol/L Blood Urea Nitrogen 27 7-18 mg/dl Creatinine 1.11 0.60-1.40 mg/dl Est Creatinine Clear Calc Drug Dose 56.1 ml/min Estimated GFR () 70.3 Estimated GFR (Non- 60.7 BUN/Creatinine Ratio 24.1 10-20 Random Glucose 110 70-99 mg/dl Calcium Level 8.6 8.5-10.1 mg/dl Total Bilirubin 5.7 0.2-1 mg/dl Aspartate Amino Transf (AST/SGOT) 233 15-37 U/L Alanine Aminotransferase (ALT/SGPT) 230 12-78 U/L Alkaline Phosphatase 122 45-117 U/L Total Protein 6.1 6.4-8.2 gm/dl Albumin 2.8 3.4-5.0 gm/dl Globulin 3.3 2.5-4.0 gm/dl Albumin/Globulin Ratio 0.9 0.9-2 Amylase Level 22 25-115 U/L Lipase 38 73-393 U/L Assessment & Plan Base on (T ) bilirubin is 3.6, and pt has T 39.4 DX CBD stone, cholangitis tylenol 650 mg po q6h prn for T>38.5 start Zosyn 3.375 gm IV q6h GI consult for ERCP cancel lap masood for tomorrow, repeat labs in am, 03/31/2017 repeat labs in am, possible, pt will have laparoscopic cholecystectomy on 04/03/2017 D/W benefits, risks and alternatives of the procedure, pt understood, he agrees with the plan, I answered all questions, U/S for gallbladder Base on (T ) bilirubin is 3.6, and pt has T 39.4 DX CBD stone, cholangitis tylenol 650 mg po q6h prn for T>38.5 start Zosyn 3.375 gm IV q6h GI consult for ERCP cancel lap masood for tomorrow, repeat labs in am,
--- NOTE | 2017-03-31 21:31 | Progress Note ---
Subjective Date of Service: Mar 31, 2017. Subjective Pt evaluation today including: conversation w/ patient, conversation w/ family (, son ), physical exam, chart review, lab review, review of studies (ERCP, etc), conversation w/ senior treasury consultant (GI) Pain: post-op from ERCP - NO abd pain PO Intake: npo Voiding: no voiding problems Problem List Medical Problems: (1) Acute cholecystitis Status: Acute Review of Systems Constitutional: No fever, No chills Respiratory: No shortness of breath, No dyspnea on exertion Cardiac: No chest pain, No orthopnea Abdomen: No pain, No nausea, No vomiting Objective Vital Signs Date Time Temp Pulse Resp B/P (MAP) Pulse Ox O2 Delivery O2 Flow Rate FiO2 03/31/17 19:12 36.4 59 18 127/63 (84) 92 Room Air 03/31/17 16:00 Room Air 03/31/17 15:12 36.5 65 18 137/68 (91) 91 Room Air 03/31/17 13:55 36.9 59 18 148/37 (74) 94 Room Air 03/31/17 13:00 37.1 59 16 164/72 (102) 94 Room Air 03/31/17 11:54 36.9 61 16 148/73 (98) 91 Room Air 03/31/17 11:25 78 20 152/75 (100) 98 03/31/17 10:59 36.8 61 18 155/75 (101) 94 Room Air 03/31/17 10:55 94 Room Air 03/31/17 10:55 Room Air 03/31/17 10:45 60 14 150/82 93 Room Air 03/31/17 10:35 37.0 61 14 151/80 93 Room Air 03/31/17 10:25 62 12 153/89 99 Oxymask 2 03/31/17 10:15 63 12 169/72 99 Oxymask 10 03/31/17 10:07 36.4 95 16 165/77 97 Oxymask 10 03/31/17 07:18 36.9 62 17 124/69 (87) 92 Room Air 03/31/17 00:05 Room Air 03/30/17 22:45 36.8 76 14 123/66 (85) 94 Room Air Physical Exam General Appearance: no apparent distress Eyes: + abnormal sclerae exam (icterus) ENT: pharynx normal Neck: no JVD Respiratory/Chest: lungs clear, no respiratory distress, no accessory muscle use Cardiovascular: regular rate, rhythm, no gallop, no murmur Abdomen: normal bowel sounds, non tender, soft, no organomegaly Extremities: no pedal edema Neurologic/Psychiatric: alert, oriented x 3 Skin: + pertinent finding (ecchymoses around both eyes - apparently this occurred following ERCP today) Laboratory Results Last 24 Hours Test 03/31/17 06:50 Sodium Level 138 mmol/L Potassium Level 4.4 mmol/L Chloride Level 105 mmol/L Carbon Dioxide Level 27 mmol/L Anion Gap 5.0 mmol/L Blood Urea Nitrogen 27 mg/dl Creatinine 1.11 mg/dl Est Creatinine Clear Calc Drug Dose 56.1 ml/min Estimated GFR () 70.3 Estimated GFR (Non- 60.7 BUN/Creatinine Ratio 24.1 Random Glucose 110 mg/dl Calcium Level 8.6 mg/dl Total Bilirubin 5.7 mg/dl Aspartate Amino Transf (AST/SGOT) 233 U/L Alanine Aminotransferase (ALT/SGPT) 230 U/L Alkaline Phosphatase 122 U/L Total Protein 6.1 gm/dl Albumin 2.8 gm/dl Globulin 3.3 gm/dl Albumin/Globulin Ratio 0.9 Amylase Level 22 U/L Lipase 38 U/L Assessment and Plan 86yo male - 1. acute cholangitis with acute cholecystitis - s/p ERCP with removal of several CBD stones & placement of pancreatic/CBD stents. Appreciate GI consultation and assistance. Appreciate gen surg assistance. Repeat LFTs/lipase in am. Cont IVF. Cont IV zosyn. Risk assessment for upcoming lap masood - patient reports no recent chest pain at home, can walk a flight of stairs w/o cp/dyspnea, and lives fairly active lifestyle without limitation. Surgical cardiovascular risk is mild-moderate given his known CAD. 2. sepsis - 2nd to #1 - resolving. 3. coronary artery disease, s/p ID in 1995; s/p CABG 2002 - no current or recent ischemic symptoms. beta stefanie. resume aspirin when ok with surgery/ GI. 4. h/o BPH - no urinary symptoms at this time. 5. HTN - controlled with toprol xl. 6. hyperlipidemia - hold statin in light of abnormal LFTs. 7. abnormal LFTs - 2nd to #1; should improve s/p ERCP; LFTs in AM. 8. FEN - cut fluid rate to 75cc/hr. BMP in am. mag in am. Spoke with GI following his ERCP - ok to start clears later tonight since abd exam is benign and he has no GI symptoms. 9. DVT proph - hold chemical means due to ERCP. SCDs for now. Continued [facility] stay due to: inadequate po fluid intake, multiple IV medications needed Discharge planning: home
[2017-04-01] MEDS: D5W AND LACTATED RINGERS 1,000 ML IV SCH ×2 (01:14→19:57)
[2017-04-01 03:49] VITALS: BP 147/67; PULSE 52; TEMP 36.9; O2SAT 93
[2017-04-01 07:18] VITALS: BP 144/70; PULSE 55; TEMP 36.8; O2SAT 94
[2017-04-01] MEDS: PIPERACILL/TAZOBAC IV 3.375 GM in DEXTROSE 5% 100ML 100 ML IV SCH ×3 (07:39→23:37)
[2017-04-01 07:48] LABS: BUN/CREATININE RATIO 26.3 (10-20); CALCIUM 8.3 mg/dl (8.5-10.1); CREATININE 0.8 mg/dl (0.60-1.40); MAGNESIUM 2.6 mg/dl (1.8-2.4); POTASSIUM 4.2 mmol/L (3.5-5.1)
[2017-04-01 07:59] LABS: HEMATOCRIT 34.6 % (42-52); MEAN CELL VOLUME 97.2 fL (80-100); MEAN CORPUSCULAR HEMOGLOBIN 32.6 pg (25-34); MEAN CORPUSCULAR HGB CONC 33.5 g/dl (32-36); MEAN PLATELET VOLUME 9.9 fL (7.4-10.4); PLATELET COUNT 109 K/uL (130-400); RED BLOOD COUNT 3.56 M/uL (4.7-6.1); WHITE BLOOD COUNT 6.94 K/uL (4.8-10.8)
[2017-04-01 08:02] LABS: ALB/GLOB RATIO 0.8 (0.9-2)
--- NOTE | 2017-04-01 08:33 | DIAGNOSTIC IMAGING REPORT ---
ULTRASOUND RIGHT UPPER QUADRANT ABDOMEN CLINICAL HISTORY: Right upper quadrant abdominal pain. COMPARISON STUDY: No priors. TECHNIQUE: Real-time, grayscale, and color flow sonography of the right upper quadrant of the abdomen was performed. Images are reviewed in the transverse and longitudinal planes. FINDINGS: Liver: The liver is mildly enlarged and demonstrates heterogeneously increased echotexture consistent with hepatic steatosis. There is no intrahepatic biliary ductal dilatation. The main portal vein is patent. Gallbladder: The gallbladder is filled with sludge and stones. The gallbladder wall is thickened and edematous, measuring up to 10 mm. Trace pericholecystic fluid is identified. A sonographic Jordan's sign is reportedly absent. The common bile duct measures up to 0.8 cm in diameter. Pancreas: Not well visualized due to overlying bowel gas. Right kidney: Survey images of the right kidney demonstrate normal size and echotexture. There is no hydronephrosis. Ascites: None. IMPRESSION: 1. Cholelithiasis and biliary sludge with sonographic evidence of acute cholecystitis. Surgical consultation is advised. 2. Hepatic steatosis. 3. The pancreas was not well visualized due to overlying bowel gas. Electronically signed by: Brian Greene M.D. 04/01/2017 8:32 AM Dictated Date/Time: 04/01/2017 8:30 AM
[2017-04-01 08:54] VITALS: PULSE 60
[2017-04-01] MEDS: METOPROLOL SUCC 25MG EXT REL TAB PO SCH (08:56)
[2017-04-01] MEDS: ENOXAPARIN 40 MG/0.4 ML SYR SQ SCH (08:56)
[2017-04-01] MEDS: MULTIVITAMIN TAB PO SCH (08:57)
[2017-04-01] MEDS ORDERED: NURSING VERBAL MED ORDER SCH (09:00)
--- NOTE | 2017-04-01 09:22 | Surgery Progress Note ---
Surgery Progress Note Date of Service Apr 01, 2017. Subjective + feeling well pt is doing much better, no abdominal pain, no nausea, no vomiting, T bili 1.4, normal WBC, U/S -IMPRESSION: 1. Cholelithiasis and biliary sludge with sonographic evidence of acute cholecystitis. Surgical consultation is advised. 2. Hepatic steatosis. 3. The pancreas was not well visualized due to overlying bowel gas. Objective Vital Signs: Date Time Temp Pulse Resp B/P (MAP) Pulse Ox O2 Delivery O2 Flow Rate FiO2 04/01/17 08:54 60 04/01/17 07:35 Room Air 04/01/17 07:18 36.8 55 17 144/70 (94) 94 Room Air 04/01/17 03:49 36.9 52 16 147/67 (93) 93 Room Air 03/31/17 23:30 Room Air 03/31/17 22:54 36.9 52 15 131/65 (87) 92 Room Air 03/31/17 19:12 36.4 59 18 127/63 (84) 92 Room Air 03/31/17 16:00 Room Air 03/31/17 15:12 36.5 65 18 137/68 (91) 91 Room Air 03/31/17 13:55 36.9 59 18 148/37 (74) 94 Room Air 03/31/17 13:00 37.1 59 16 164/72 (102) 94 Room Air 03/31/17 11:54 36.9 61 16 148/73 (98) 91 Room Air 03/31/17 11:25 78 20 152/75 (100) 98 03/31/17 10:59 36.8 61 18 155/75 (101) 94 Room Air 03/31/17 10:55 94 Room Air 03/31/17 10:55 Room Air 03/31/17 10:45 60 14 150/82 93 Room Air 03/31/17 10:35 37.0 61 14 151/80 93 Room Air 03/31/17 10:25 62 12 153/89 99 Oxymask 2 03/31/17 10:15 63 12 169/72 99 Oxymask 10 03/31/17 10:07 36.4 95 16 165/77 97 Oxymask 10 General Appearance: WD/WN Head: normocephalic Neck: supple, no adenopathy, no JVD Respiratory/Chest: chest non-tender, lungs clear Cardiovascular: regular rate, rhythm, no edema, no gallop, no JVD Abdomen: normal bowel sounds, non tender, non distended, soft Extremities: normal range of motion, non-tender, normal inspection Laboratory Results: Results Past 24 Hours Test 04/01/17 06:26 Range/Units White Blood Count 6.94 4.8-10.8 K/uL Red Blood Count 3.56 4.7-6.1 M/uL Hemoglobin 11.6 14.0-18.0 g/dL Hematocrit 34.6 42-52 % Mean Corpuscular Volume 97.2 80-100 fL Mean Corpuscular Hemoglobin 32.6 25-34 pg Mean Corpuscular Hemoglobin Concent 33.5 32-36 g/dl Platelet Count 109 130-400 K/uL Mean Platelet Volume 9.9 7.4-10.4 fL RDW Standard Deviation 51.5 36.4-46.3 fL RDW Coefficient of Variation 14.4 11.5-14.5 % Sodium Level 139 136-145 mmol/L Potassium Level 4.2 3.5-5.1 mmol/L Chloride Level 109 98-107 mmol/L Carbon Dioxide Level 26 21-32 mmol/L Anion Gap 4.0 3-11 mmol/L Blood Urea Nitrogen 21 7-18 mg/dl Creatinine 0.80 0.60-1.40 mg/dl Est Creatinine Clear Calc Drug Dose 77.9 ml/min Estimated GFR () 95.1 Estimated GFR (Non- 82.0 BUN/Creatinine Ratio 26.3 10-20 Random Glucose 155 70-99 mg/dl Calcium Level 8.3 8.5-10.1 mg/dl Magnesium Level 2.6 1.8-2.4 mg/dl Total Bilirubin 1.4 0.2-1 mg/dl Aspartate Amino Transf (AST/SGOT) 112 15-37 U/L Alanine Aminotransferase (ALT/SGPT) 167 12-78 U/L Alkaline Phosphatase 111 45-117 U/L Total Protein 5.6 6.4-8.2 gm/dl Albumin 2.4 3.4-5.0 gm/dl Globulin 3.2 2.5-4.0 gm/dl Albumin/Globulin Ratio 0.8 0.9-2 Lipase 226 73-393 U/L Assessment & Plan Base on (T ) bilirubin is 3.6, and pt has T 39.4 DX CBD stone, cholangitis tylenol 650 mg po q6h prn for T>38.5 start Zosyn 3.375 gm IV q6h GI consult for ERCP cancel lap masood for tomorrow, repeat labs in am, 03/31/2017 repeat labs in am, possible, pt will have laparoscopic cholecystectomy on 04/03/2017 D/W benefits, risks and alternatives of the procedure, pt understood, he agrees with the plan, I answered all questions, U/S for gallbladder 04/01/2017 pt will have laparoscopic cholecystectomy on 04/03/2017 D/W benefits, risks and alternatives of the procedure, pt understood, he agrees with the plan, I answered all questions, U/S for gallbladder NPO from [place] on 04/02 regular diet Base on (T ) bilirubin is 3.6, and pt has T 39.4 DX CBD stone, cholangitis tylenol 650 mg po q6h prn for T>38.5 start Zosyn 3.375 gm IV q6h GI consult for ERCP cancel lap masood for tomorrow, repeat labs in am, 03/31/2017 repeat labs in am, possible, pt will have laparoscopic cholecystectomy on 04/03/2017 D/W benefits, risks and alternatives of the procedure, pt understood, he agrees with the plan, I answered all questions, U/S for gallbladder
[2017-04-01 10:41] LABS: BASO % 0.1 %; BASO ABS # 0.01 K/uL (0-0.2); COMPLETE YES; IG% 0.3 %; LYMPH % 10.7 %; LYMPH ABS # 0.74 K/uL (1.2-3.4); MONO % 8.9 %
[2017-04-01] MEDS: FINASTERIDE 5 MG TAB PO SCH (10:42)
--- NOTE | 2017-04-01 11:33 | Gastroenterology Progress Note ---
Progress Note Date of Service: Apr 01, 2017 Subjective Pt evaluation today including: conversation w/ patient, conversation w/ family Feels much improved today has little to no abdominal pain. ERCP yesterday showed jarad pus removed from his bile duct. Medications Current Inpatient Medications Medications (Trade) Dose Ordered Sig/Nayely Route Start Time Stop Time Status Last Admin Dose Admin Ondansetron HCl (Zofran Inj) 4 mg Q6H PRN IV 03/30/17 14:45 04/29/17 14:44 Metoprolol Succinate (Toprol Xl Tab) 25 mg QAM PO 03/31/17 09:00 04/30/17 08:59 04/01/17 08:56 25 MG Multivitamins (Multivitamin Tab) 1 tab DAILY PO 03/31/17 09:00 04/30/17 08:59 04/01/17 08:57 1 TAB Miscellaneous Information (Order Awaiting Action) 1 ea QS N/A 03/31/17 08:00 04/30/17 07:59 Morphine Sulfate (MoRPHine SULFATE INJ) 2 mg Q4 PRN IV 03/30/17 15:15 04/13/17 15:14 03/30/17 19:04 2 MG Enoxaparin Sodium (Lovenox Inj) 40 mg QAM SQ 03/31/17 09:00 04/30/17 08:59 Piperacillin Sod/ Tazobactam Sod 3.375 gm/Dextrose 115 ml @ 28.75 mls/ hr Q8H IV 03/31/17 00:00 04/14/17 00:00 04/01/17 07:39 28.75 MLS/HR Piperacillin Sod/ Tazobactam Sod (Consult) 1 ea UD PRN N/A 03/30/17 17:45 04/29/17 17:44 Morphine Sulfate (MoRPHine SULFATE INJ) 4 mg Q4 PRN IV 03/30/17 19:00 04/13/17 18:59 Dextrose/Lactated Ringer's 1,000 ml @ 75 mls/hr [id number] IV 03/31/17 12:00 04/30/17 11:59 04/01/17 01:14 75 MLS/HR Finasteride (Proscar Tab) 5 mg QAM PO 04/01/17 10:00 05/01/17 09:59 04/01/17 10:42 5 MG Objective Vital Signs Date Time Temp Pulse Resp B/P (MAP) Pulse Ox O2 Delivery O2 Flow Rate FiO2 04/01/17 08:54 60 04/01/17 07:35 Room Air 04/01/17 07:18 36.8 55 17 144/70 (94) 94 Room Air 04/01/17 03:49 36.9 52 16 147/67 (93) 93 Room Air 03/31/17 23:30 Room Air 03/31/17 22:54 36.9 52 15 131/65 (87) 92 Room Air 03/31/17 19:12 36.4 59 18 127/63 (84) 92 Room Air 03/31/17 16:00 Room Air 03/31/17 15:12 36.5 65 18 137/68 (91) 91 Room Air 03/31/17 13:55 36.9 59 18 148/37 (74) 94 Room Air 03/31/17 13:00 37.1 59 16 164/72 (102) 94 Room Air 03/31/17 11:54 36.9 61 16 148/73 (98) 91 Room Air Physical Exam General Appearance: WD/WN, no apparent distress Neck: supple Respiratory/Chest: chest non-tender, lungs clear Cardiovascular: regular rate, rhythm, no edema Abdomen: normal bowel sounds, non tender Extremities: normal range of motion, non-tender Neurologic/Psych: emergency department clinician II-XII nml as tested Skin: normal color Laboratory Results Last 24 Hours Test 04/01/17 06:26 White Blood Count 6.94 K/uL Red Blood Count 3.56 M/uL Hemoglobin 11.6 g/dL Hematocrit 34.6 % Mean Corpuscular Volume 97.2 fL Mean Corpuscular Hemoglobin 32.6 pg Mean Corpuscular Hemoglobin Concent 33.5 g/dl Platelet Count 109 K/uL Mean Platelet Volume 9.9 fL Neutrophils (%) (Auto) 80.0 % Lymphocytes (%) (Auto) 10.7 % Monocytes (%) (Auto) 8.9 % Eosinophils (%) (Auto) 0.0 % Basophils (%) (Auto) 0.1 % Neutrophils # (Auto) 5.55 K/uL Lymphocytes # (Auto) 0.74 K/uL Monocytes # (Auto) 0.62 K/uL Eosinophils # (Auto) 0.00 K/uL Basophils # (Auto) 0.01 K/uL RDW Standard Deviation 51.5 fL RDW Coefficient of Variation 14.4 % Immature Granulocyte % (Auto) 0.3 % Immature Granulocyte # (Auto) 0.02 K/uL Sodium Level 139 mmol/L Potassium Level 4.2 mmol/L Chloride Level 109 mmol/L Carbon Dioxide Level 26 mmol/L Anion Gap 4.0 mmol/L Blood Urea Nitrogen 21 mg/dl Creatinine 0.80 mg/dl Est Creatinine Clear Calc Drug Dose 77.9 ml/min Estimated GFR () 95.1 Estimated GFR (Non- 82.0 BUN/Creatinine Ratio 26.3 Random Glucose 155 mg/dl Calcium Level 8.3 mg/dl Magnesium Level 2.6 mg/dl Total Bilirubin 1.4 mg/dl Aspartate Amino Transf (AST/SGOT) 112 U/L Alanine Aminotransferase (ALT/SGPT) 167 U/L Alkaline Phosphatase 111 U/L Total Protein 5.6 gm/dl Albumin 2.4 gm/dl Globulin 3.2 gm/dl Albumin/Globulin Ratio 0.8 Lipase 226 U/L Assessment and Plan 86-year-old gentleman presenting with cholangitis and concern for acute cholecystitis He's done quite well after ERCP with relief of his biliary obstruction, his fever curve is down, his symptoms are better, and his labs are improved. He has no signs of complications such as pancreatitis on ERCP. Advance diet per surgery Cholecystectomy timing per surgery KUB in 1-2 weeks to ensure that the prophylactic placed pancreatic duct stent has passed.
[2017-04-01 14:56] VITALS: BP 137/70; PULSE 52; TEMP 36.7; O2SAT 93
--- NOTE | 2017-04-01 17:50 | Progress Note ---
Subjective Date of Service: Apr 01, 2017. Subjective Patient feels quite well after his ERCP repeat ultrasound has confirmed acute cholecystitis patient is anticipating surgery this week with Dr. Correa. Problem List Medical Problems: (1) Acute cholecystitis Status: Acute Review of Systems Constitutional: No fever, No chills, No weakness Respiratory: No cough, No shortness of breath, No dyspnea on exertion Cardiac: No chest pain, No orthopnea, No PND, No edema Abdomen: + pain, + constipation, No nausea, No vomiting, No diarrhea Musculoskeletal: No joint pain, No muscle pain Male : No dysuria, No urinary frequency Neurologic: No memory loss, No paralysis Psychiatric: No depression symptoms, No anhedonism Objective Vital Signs Date Time Temp Pulse Resp B/P (MAP) Pulse Ox O2 Delivery O2 Flow Rate FiO2 04/01/17 07:18 36.8 55 17 144/70 (94) 94 Room Air 04/01/17 03:49 36.9 52 16 147/67 (93) 93 Room Air 03/31/17 23:30 Room Air 03/31/17 22:54 36.9 52 15 131/65 (87) 92 Room Air 03/31/17 19:12 36.4 59 18 127/63 (84) 92 Room Air 03/31/17 16:00 Room Air 03/31/17 15:12 36.5 65 18 137/68 (91) 91 Room Air 03/31/17 13:55 36.9 59 18 148/37 (74) 94 Room Air 03/31/17 13:00 37.1 59 16 164/72 (102) 94 Room Air 03/31/17 11:54 36.9 61 16 148/73 (98) 91 Room Air 03/31/17 11:25 78 20 152/75 (100) 98 03/31/17 10:59 36.8 61 18 155/75 (101) 94 Room Air 03/31/17 10:55 94 Room Air 03/31/17 10:55 Room Air 03/31/17 10:45 60 14 150/82 93 Room Air 03/31/17 10:35 37.0 61 14 151/80 93 Room Air 03/31/17 10:25 62 12 153/89 99 Oxymask 2 03/31/17 10:15 63 12 169/72 99 Oxymask 10 03/31/17 10:07 36.4 95 16 165/77 97 Oxymask 10 Physical Exam General Appearance: WD/WN, + mild distress Eyes: PERRL, EOMI Respiratory/Chest: chest non-tender, lungs clear, normal breath sounds Cardiovascular: regular rate, rhythm, no murmur Abdomen: normal bowel sounds, soft, + guarding, + tenderness Neurologic/Psychiatric: alert, oriented x 3 Laboratory Results Last 24 Hours Test 04/01/17 06:26 White Blood Count 6.94 K/uL Red Blood Count 3.56 M/uL Hemoglobin 11.6 g/dL Hematocrit 34.6 % Mean Corpuscular Volume 97.2 fL Mean Corpuscular Hemoglobin 32.6 pg Mean Corpuscular Hemoglobin Concent 33.5 g/dl Platelet Count 109 K/uL Mean Platelet Volume 9.9 fL RDW Standard Deviation 51.5 fL RDW Coefficient of Variation 14.4 % Sodium Level 139 mmol/L Potassium Level 4.2 mmol/L Chloride Level 109 mmol/L Carbon Dioxide Level 26 mmol/L Anion Gap 4.0 mmol/L Blood Urea Nitrogen 21 mg/dl Creatinine 0.80 mg/dl Est Creatinine Clear Calc Drug Dose 77.9 ml/min Estimated GFR () 95.1 Estimated GFR (Non- 82.0 BUN/Creatinine Ratio 26.3 Random Glucose 155 mg/dl Calcium Level 8.3 mg/dl Magnesium Level 2.6 mg/dl Total Bilirubin 1.4 mg/dl Aspartate Amino Transf (AST/SGOT) 112 U/L Alanine Aminotransferase (ALT/SGPT) 167 U/L Alkaline Phosphatase 111 U/L Total Protein 5.6 gm/dl Albumin 2.4 gm/dl Globulin 3.2 gm/dl Albumin/Globulin Ratio 0.8 Lipase 226 U/L Assessment and Plan 86yo male -with acute cholecystitis, s/p ercp with anticipated cholecystectomy this week acute cholangitis with acute cholecystitis - s/p ERCP with removal of several CBD stones & placement of pancreatic/CBD stents. possible cholecystectomy this week Cont IV zosyn. Risk assessment for upcoming lap masood - patient reports no recent chest pain at home, can walk a flight of stairs w/o cp/dyspnea, and lives fairly active lifestyle without limitation. Surgical cardiovascular risk is mild-moderate given his known CAD. sepsis - resolved. coronary artery disease, s/p CA in 1995; s/p CABG 2002 - no current or recent ischemic symptoms. beta stefanie. resume aspirin when ok with surgery/GI. h/o BPH -stable no urinary symptoms at this time. HTN - contnues to be controlled with toprol xl. hyperlipidemia - hold statin in light of abnormal LFTs. DVT proph - hold chemical means due to ERCP. SCDs for now. Continued [facility] stay due to: inadequate po fluid intake, multiple IV medications needed Discharge planning: home
[2017-04-01 23:02] VITALS: BP 138/77; PULSE 52; TEMP 37.1; O2SAT 96
[2017-04-02] VITALS (8 sets, daily range): BP systolic 144–175; BP diastolic 54–116; PULSE 47–60; TEMP 36.7–36.9; O2SAT 95–96
[2017-04-02 06:05] LABS: HEMATOCRIT 35.3 % (42-52); MEAN CORPUSCULAR HEMOGLOBIN 31.9 pg (25-34); MEAN CORPUSCULAR HGB CONC 32.9 g/dl (32-36); MEAN PLATELET VOLUME 9.9 fL (7.4-10.4); PLATELET COUNT 123 K/uL (130-400); RED BLOOD COUNT 3.64 M/uL (4.7-6.1); WHITE BLOOD COUNT 5.64 K/uL (4.8-10.8)
[2017-04-02 06:37] LABS: CREATININE 0.79 mg/dl (0.60-1.40)
[2017-04-02] MEDS: PIPERACILL/TAZOBAC IV 3.375 GM in DEXTROSE 5% 100ML 100 ML IV SCH ×3 (07:30→23:38)
[2017-04-02] MEDS: D5W AND LACTATED RINGERS 1,000 ML IV SCH ×2 (07:30→20:53)
[2017-04-02] MEDS: MULTIVITAMIN TAB PO SCH (08:00)
[2017-04-02] MEDS: METOPROLOL SUCC 25MG EXT REL TAB PO SCH (08:00)
[2017-04-02] MEDS: FINASTERIDE 5 MG TAB PO SCH (08:00)
[2017-04-02] MEDS: ENOXAPARIN 40 MG/0.4 ML SYR SQ SCH (09:44)
--- NOTE | 2017-04-02 10:32 | Gastroenterology Progress Note ---
Progress Note Date of Service: Apr 02, 2017 Subjective Pt evaluation today including: conversation w/ patient, physical exam, chart review, lab review, review of studies, review of inpatient medication list Pt sitting up in bed, reading newspaper. Denies any complaints, including no CP , SOB, abd pain, n/v. Tolerating regular food well. BM this AM solid, no blood per rectum. Planned for lap cholecystectomy tomorrow per Dr. Correa. LFTs trending down. Review of Systems Constitutional: No fever, No chills Respiratory: No cough, No shortness of breath Cardiac: No chest pain Abdomen: No pain, No nausea, No vomiting Skin: No rash, No itch, No jaundice Medications Current Inpatient Medications Medications (Trade) Dose Ordered Sig/Nayely Route Start Time Stop Time Status Last Admin Dose Admin Ondansetron HCl (Zofran Inj) 4 mg Q6H PRN IV 03/30/17 14:45 04/29/17 14:44 Metoprolol Succinate (Toprol Xl Tab) 25 mg QAM PO 03/31/17 09:00 04/30/17 08:59 04/02/17 08:00 25 MG Multivitamins (Multivitamin Tab) 1 tab DAILY PO 03/31/17 09:00 04/30/17 08:59 04/02/17 08:00 1 TAB Miscellaneous Information (Order Awaiting Action) 1 ea QS N/A 03/31/17 08:00 04/30/17 07:59 Morphine Sulfate (MoRPHine SULFATE INJ) 2 mg Q4 PRN IV 03/30/17 15:15 04/13/17 15:14 03/30/17 19:04 2 MG Enoxaparin Sodium (Lovenox Inj) 40 mg QAM SQ 03/31/17 09:00 04/30/17 08:59 04/02/17 09:44 40 MG Piperacillin Sod/ Tazobactam Sod 3.375 gm/Dextrose 115 ml @ 28.75 mls/ hr Q8H IV 03/31/17 00:00 04/14/17 00:00 04/02/17 07:30 28.75 MLS/HR Piperacillin Sod/ Tazobactam Sod (Consult) 1 ea UD PRN N/A 03/30/17 17:45 04/29/17 17:44 Morphine Sulfate (MoRPHine SULFATE INJ) 4 mg Q4 PRN IV 03/30/17 19:00 04/13/17 18:59 Dextrose/Lactated Ringer's 1,000 ml @ 75 mls/hr [id number] IV 03/31/17 12:00 04/30/17 11:59 04/02/17 07:30 75 MLS/HR Finasteride (Proscar Tab) 5 mg QAM PO 04/01/17 10:00 05/01/17 09:59 04/02/17 08:00 5 MG Objective Vital Signs Date Time Temp Pulse Resp B/P (MAP) Pulse Ox O2 Delivery O2 Flow Rate FiO2 04/02/17 10:17 144/74 (97) 04/02/17 08:48 160/63 (95) 04/02/17 08:34 96 Room Air 04/02/17 08:19 36.7 58 20 168/116 (133) 96 Room Air 175/89 (117) 04/02/17 07:35 60 04/02/17 07:20 Room Air 04/01/17 23:43 Room Air 04/01/17 23:02 37.1 52 16 138/77 (97) 96 Room Air 04/01/17 15:45 Room Air 04/01/17 14:56 36.7 52 16 137/70 (92) 93 Room Air Physical Exam General Appearance: WD/WN, no apparent distress Eyes: normal inspection, PERRL, EOMI Neck: supple, no JVD, trachea midline Respiratory/Chest: normal breath sounds, no respiratory distress, no accessory muscle use Cardiovascular: regular rate, rhythm, no gallop, no murmur Abdomen: normal bowel sounds, non tender, soft Extremities: normal inspection, no pedal edema, no calf tenderness Neurologic/Psych: alert, normal mood/affect, oriented x 3 Skin: normal color, no jaundice, no rash Laboratory Results Last 24 Hours Test 04/02/17 05:39 White Blood Count 5.64 K/uL Red Blood Count 3.64 M/uL Hemoglobin 11.6 g/dL Hematocrit 35.3 % Mean Corpuscular Volume 97.0 fL Mean Corpuscular Hemoglobin 31.9 pg Mean Corpuscular Hemoglobin Concent 32.9 g/dl RDW Standard Deviation 52.2 fL RDW Coefficient of Variation 14.5 % Platelet Count 123 K/uL Mean Platelet Volume 9.9 fL Creatinine 0.79 mg/dl Est Creatinine Clear Calc Drug Dose 78.9 ml/min Estimated GFR () 95.6 Estimated GFR (Non- 82.5 Assessment and Plan Pt is a 86 y/o male w cholangitis and acute cholecystitis, s/p ERCP w choledocholithiasis removal, sphincterectomy and pancreas duct stent placement on 03/31/17. He has done well since the procedure, afebrile, no n/v, abd pain, LFTs trending down. Planned for lap cholecystectomy by Dr. Correa on 04/03 - Monitor LFTs - NPO after midnight for lap masood by Dr. Correa on 04/03 - I have placed outpt order for KUB to check pancreas duct placement in 1 weeks ' time after ERCP. Pt to obtain study after DC I have seen, examined and agree with the plan as outlined by DASHAWN Rodriguez as above. -exam reveals soft abd no complaints today Chin Humphrey M.D.
--- NOTE | 2017-04-02 16:39 | Progress Note ---
Progress Note Date of Service Apr 02, 2017. Progress Note 86 yo male scheduled for lap masood. PMH significant for [place] in 1995, HTN, HLD, BPH, OA, Nephrolithiasis, and reflux. The patient presented with abdominal pain secondary to acute cholecystitis and received a GA on 03/31/17 for ERCP without any complications. Since ERCP, patient reports improvement in his symptoms, including his abdominal pain and denies N/V. He does report the appearance of B/L ecchymoses of his eyes that developed after his ERCP (cause unknown), but denies any changes in his vision. Anesthesia for ERCP was notable for atraumatic RSI with MAC 3, grade 3 view and 8.0 ETT. Discussed plan for repeat GA with associated risks with the patient and his family. Consent obtained. Patient was instructed to remain NPO after midnight tonight other than scheduled AM meds with a sip of water. Please ensure patient takes his toprol XL prior to surgery tomorrow morning. Contact anesthesia with any questions or concerns. Radha Carroll MD, PhD
--- NOTE | 2017-04-02 16:48 | Hospitalist Progress Note ---
Hospitalist Progress Note Date of Service Apr 02, 2017. (Jaquelin Moncada PA-C) Subjective Pt evaluation today including: conversation w/ patient, conversation w/ family , physical exam, chart review, lab review, review of studies, review of inpatient medication list Patient seen and evaluated. No acute events overnight. Tolerating a regular diet and denying abdominal pain. Planned to have Lap Deanna tomorrow. LFTs continue to trend down. Had BM this morning but states was a little constipating. Constitutional: No fever, No chills Respiratory: No shortness of breath Cardiovascular: No chest pain Abdomen: No pain, No nausea, No vomiting, No diarrhea Male : No dysuria Heme: No abnormal bleeding/bruising (Jaquelin Moncada PA-C) Medications Current Inpatient Medications Medications (Trade) Dose Ordered Sig/Nayely Route Start Time Stop Time Status Last Admin Dose Admin Ondansetron HCl (Zofran Inj) 4 mg Q6H PRN IV 03/30/17 14:45 04/29/17 14:44 Metoprolol Succinate (Toprol Xl Tab) 25 mg QAM PO 03/31/17 09:00 04/30/17 08:59 04/02/17 08:00 25 MG Multivitamins (Multivitamin Tab) 1 tab DAILY PO 03/31/17 09:00 04/30/17 08:59 04/02/17 08:00 1 TAB Miscellaneous Information (Order Awaiting Action) 1 ea QS N/A 03/31/17 08:00 04/30/17 07:59 Morphine Sulfate (MoRPHine SULFATE INJ) 2 mg Q4 PRN IV 03/30/17 15:15 04/13/17 15:14 03/30/17 19:04 2 MG Enoxaparin Sodium (Lovenox Inj) 40 mg QAM SQ 03/31/17 09:00 04/30/17 08:59 04/02/17 09:44 40 MG Piperacillin Sod/ Tazobactam Sod 3.375 gm/Dextrose 115 ml @ 28.75 mls/ hr Q8H IV 03/31/17 00:00 04/14/17 00:00 04/02/17 16:06 28.75 MLS/HR Piperacillin Sod/ Tazobactam Sod (Consult) 1 ea UD PRN N/A 03/30/17 17:45 04/29/17 17:44 Morphine Sulfate (MoRPHine SULFATE INJ) 4 mg Q4 PRN IV 03/30/17 19:00 04/13/17 18:59 Dextrose/Lactated Ringer's 1,000 ml @ 75 mls/hr [id number] IV 03/31/17 12:00 04/30/17 11:59 04/02/17 07:30 75 MLS/HR Finasteride (Proscar Tab) 5 mg QAM PO 04/01/17 10:00 05/01/17 09:59 04/02/17 08:00 5 MG (Jaquelin Moncada PA-C) Objective Vital Signs Date Time Temp Pulse Resp B/P (MAP) Pulse Ox O2 Delivery O2 Flow Rate FiO2 04/02/17 14:49 36.9 49 18 145/74 (97) 95 Room Air 04/02/17 10:17 144/74 (97) 04/02/17 08:48 160/63 (95) 04/02/17 08:34 96 Room Air 04/02/17 08:19 36.7 58 20 168/116 (133) 96 Room Air 175/89 (117) 04/02/17 07:35 60 04/02/17 07:20 Room Air 04/01/17 23:43 Room Air 04/01/17 23:02 37.1 52 16 138/77 (97) 96 Room Air (Jaquelin Moncada PA-C) Physical Exam General Appearance: WD/WN, no apparent distress Eyes: sclerae normal ENT: hearing grossly normal Neck: supple, no JVD, trachea midline Respiratory/Chest: lungs clear, normal breath sounds, no respiratory distress, no accessory muscle use Cardiovascular: regular rate, rhythm, no gallop, no murmur Abdomen: normal bowel sounds, non tender, soft Extremities: no pedal edema, no calf tenderness Neurologic/Psychiatric: alert, oriented x 3 Skin: normal color, warm/dry (Jaquelin Moncada PA-C) Laboratory Results Last 24 Hours Test 04/02/17 05:39 White Blood Count 5.64 K/uL Red Blood Count 3.64 M/uL Hemoglobin 11.6 g/dL Hematocrit 35.3 % Mean Corpuscular Volume 97.0 fL Mean Corpuscular Hemoglobin 31.9 pg Mean Corpuscular Hemoglobin Concent 32.9 g/dl RDW Standard Deviation 52.2 fL RDW Coefficient of Variation 14.5 % Platelet Count 123 K/uL Mean Platelet Volume 9.9 fL Creatinine 0.79 mg/dl Est Creatinine Clear Calc Drug Dose 78.9 ml/min Estimated GFR () 95.6 Estimated GFR (Non- 82.5 (Jaquelin Moncada PA-C) Assessment and Plan 86yo male -with acute cholecystitis, s/p ercp with anticipated cholecystectomy this week Sepsis (RESOLVED) Acute Cholangitis with Acute Cholecystitis S/P ERCP with CBD Stone Removal and Pancreatic/CBD Stent: - Plan for cholecystectomy on 04/03 - Zosyn for antibiotic coverage Pre-Operative Clearance: - Patient independent with ADLs and ambulations without CP/Dyspnea; - Can walk a flight of stairs without difficulty - Does have known CAD - mild-moderate surgical risk from cardiovascular standpoint CAD S/P ME (1995) S/P CABG (2002): - Hold ASA pre-operatively and can resume when cleared by surgery/GI - Toprol XL 25 mg daily BPH: Stable HTN: Stable - Toprol as above HLD: - Statin on hold due to abnormal LFTs DVT Prophylaxis: Hold chemical means pending surgery Disposition: - Lap deanna tomorrow and likely monitoring throughout day - possible D/C next couple days Continued [facility] stay due to: multiple IV medications needed Discharge planning: home (Jaquelin Moncada PA-C) [facility] Physician Supervision Note: I interviewed and examined the patient. Discussed with Jaquelin Moncada PAC and agree with findings and plan as documented in the note. Any exceptions or clarifications are listed here: None Patient looks remarkably well for having acute cholecystitis is planning on surgery in the morning with Dr. Correa Vitals are stable he's eating food walking the halls his cardiac exam is regular his lungs are clear he's able a flat Continue IV antibiotics with plan for upper scopic cholecystectomy 04/[address] Correa Documented By: Ever Marin (Ever Marin M.D.)
--- NOTE | 2017-04-02 17:16 | Surgery Progress Note ---
Surgery Progress Note Date of Service Apr 02, 2017. Subjective + feeling well pt is doing better, he tolearted diet, no abdomianl pain, no nausea, no vomiting , Objective Vital Signs: Date Time Temp Pulse Resp B/P (MAP) Pulse Ox O2 Delivery O2 Flow Rate FiO2 04/02/17 16:00 95 Room Air 04/02/17 14:49 36.9 49 18 145/74 (97) 95 Room Air 04/02/17 10:17 144/74 (97) 04/02/17 08:48 160/63 (95) 04/02/17 08:34 96 Room Air 04/02/17 08:19 36.7 58 20 168/116 (133) 96 Room Air 175/89 (117) 04/02/17 07:35 60 04/02/17 07:20 Room Air 04/01/17 23:43 Room Air 04/01/17 23:02 37.1 52 16 138/77 (97) 96 Room Air General Appearance: WD/WN, no apparent distress Head: normocephalic Neck: supple, no JVD Respiratory/Chest: chest non-tender, lungs clear, normal breath sounds Cardiovascular: regular rate, rhythm, no edema, no gallop, no JVD, no murmur Abdomen: normal bowel sounds, non tender, non distended, soft, no organomegaly Extremities: normal range of motion, non-tender, normal inspection Laboratory Results: Results Past 24 Hours Test 04/02/17 05:39 Range/Units White Blood Count 5.64 4.8-10.8 K/uL Red Blood Count 3.64 4.7-6.1 M/uL Hemoglobin 11.6 14.0-18.0 g/dL Hematocrit 35.3 42-52 % Mean Corpuscular Volume 97.0 80-100 fL Mean Corpuscular Hemoglobin 31.9 25-34 pg Mean Corpuscular Hemoglobin Concent 32.9 32-36 g/dl RDW Standard Deviation 52.2 36.4-46.3 fL RDW Coefficient of Variation 14.5 11.5-14.5 % Platelet Count 123 130-400 K/uL Mean Platelet Volume 9.9 7.4-10.4 fL Creatinine 0.79 0.60-1.40 mg/dl Est Creatinine Clear Calc Drug Dose 78.9 ml/min Estimated GFR () 95.6 Estimated GFR (Non- 82.5 Assessment & Plan Base on (T ) bilirubin is 3.6, and pt has T 39.4 DX CBD stone, cholangitis tylenol 650 mg po q6h prn for T>38.5 start Zosyn 3.375 gm IV q6h GI consult for ERCP cancel lap masood for tomorrow, repeat labs in am, 03/31/2017 repeat labs in am, possible, pt will have laparoscopic cholecystectomy on 04/03/2017 D/W benefits, risks and alternatives of the procedure, pt understood, he agrees with the plan, I answered all questions, U/S for gallbladder 04/01/2017 pt will have laparoscopic cholecystectomy on 04/03/2017 D/W benefits, risks and alternatives of the procedure, pt understood, he agrees with the plan, I answered all questions, U/S for gallbladder NPO from [place] on 04/0204/02/2017 pt will have laparocopic cholecystectomy tomorrow D/W benefits, risks and alternatives of the procedure, pt understood, he agrees with the plan, I answered all questions, NPO [place] Base on (T ) bilirubin is 3.6, and pt has T 39.4 DX CBD stone, cholangitis tylenol 650 mg po q6h prn for T>38.5 start Zosyn 3.375 gm IV q6h GI consult for ERCP cancel lap masood for tomorrow, repeat labs in am, 03/31/2017 repeat labs in am, possible, pt will have laparoscopic cholecystectomy on 04/03/2017 D/W benefits, risks and alternatives of the procedure, pt understood, he agrees with the plan, I answered all questions, U/S for gallbladder 04/01/2017 pt will have laparoscopic cholecystectomy on 04/03/2017 D/W benefits, risks and alternatives of the procedure, pt understood, he agrees with the plan, I answered all questions, U/S for gallbladder NPO from [place] on 04/02
[2017-04-03] VITALS (7 sets, daily range): BP systolic 135–170; BP diastolic 69–80; PULSE 50–77; TEMP 36.3–37.3; O2SAT 93–97
[2017-04-03] MEDS: PIPERACILL/TAZOBAC IV 3.375 GM in DEXTROSE 5% 100ML 100 ML IV SCH ×3 (07:44→23:57)
[2017-04-03] MEDS ORDERED: ATROPINE SULFATE 0.1 MG/ML 5ML SYR IV PRN ×2 (08:00→09:30)
[2017-04-03] MEDS ORDERED: EpHEDrine SULFATE INJ 50 MG/ML AMP IV PRN ×2 (08:00→09:30)
[2017-04-03] MEDS ORDERED: ONDANSETRON INJ 2 MG/ML 2 ML VIAL IV PRN ×2 (08:00→09:30)
[2017-04-03] MEDS ORDERED: PHENYLEPHRINE 100MCG/ML 5ML SYR IV PRN ×2 (08:00→09:30)
[2017-04-03] MEDS ORDERED: HYDROmorphone INJ 1 MG/ML SYR IV PRN ×2 (08:00→09:30)
[2017-04-03] MEDS ORDERED: FENTANYL CITRATE INJ 50 MCG/1 ML 2 ML VIAL IV PRN (08:00)
[2017-04-03] MEDS ORDERED: LABETALOL HCL IV 5 MG/ML 20ML IV PRN ×2 (08:00→09:30)
[2017-04-03] MEDS: MULTIVITAMIN TAB PO SCH (08:01)
[2017-04-03] MEDS: METOPROLOL SUCC 25MG EXT REL TAB PO SCH (08:01)
[2017-04-03] MEDS: FINASTERIDE 5 MG TAB PO SCH (08:02)
[2017-04-03 08:27] LABS: HEMATOCRIT 39.7 % (42-52); MEAN CELL VOLUME 96.4 fL (80-100); MEAN CORPUSCULAR HGB CONC 33.2 g/dl (32-36); MEAN PLATELET VOLUME 9.6 fL (7.4-10.4); PLATELET COUNT 149 K/uL (130-400); RED BLOOD COUNT 4.12 M/uL (4.7-6.1); WHITE BLOOD COUNT 6.47 K/uL (4.8-10.8)
[2017-04-03 08:55] LABS: BUN/CREATININE RATIO 20.8 (10-20); CALCIUM 8.7 mg/dl (8.5-10.1); CREATININE 0.8 mg/dl (0.60-1.40); POTASSIUM 3.7 mmol/L (3.5-5.1)
[2017-04-03 08:57] LABS: ALB/GLOB RATIO 0.8 (0.9-2)
[2017-04-03] MEDS ORDERED: FENTANYL CITRATE INJ 50 MCG/1 ML 2 ML VIAL ONE ×3 (09:04→12:18)
[2017-04-03] MEDS ORDERED: PROPOFOL IV EMULSION 10 MG/ML 20 ML VIAL IV ONE ×2 (09:47→10:28)
[2017-04-03] MEDS ORDERED: LIDOCAINE 2% 20 MG/ML 5ML SYR IV ONE (09:47)
[2017-04-03] MEDS ORDERED: LIDOCAINE HCL 1% 20 ML VIAL ONE (09:49)
[2017-04-03] MEDS ORDERED: BUPIVACAINE 0.5 % 5 MG/1 ML MPF 30ML VIAL ONE (09:50)
[2017-04-03] MEDS ORDERED: BACITRACIN OINT 15 GM TUBE ONE (09:50)
[2017-04-03] MEDS ORDERED: GLYCOPYRROLATE INJ 0.2 MG/ML VIAL ONE (10:29)
[2017-04-03] MEDS ORDERED: CEFAZOLIN SOD 1 GM VIAL ONE (10:29)
[2017-04-03] MEDS ORDERED: EpHEDrine SULFATE 50MG/5ML SYR ONE (10:29)
[2017-04-03] MEDS: D5W AND LACTATED RINGERS 1,000 ML IV SCH ×2 (10:31→23:58)
[2017-04-03] MEDS ORDERED: LABETALOL HCL IV 5 MG/ML 20ML IV ONE (11:14)
[2017-04-03] MEDS ORDERED: ROCURONIUM BROMIDE 10 MG/ML 5 ML VIAL IV ONE (12:18)
--- NOTE | 2017-04-03 13:39 | [facility] Post Operative Brief Note ---
Immediate Operative Summary Operative Date Apr 03, 2017. Pre-Operative Diagnosis Acute Cholecystitis Post-Operative Diagnosis Acute Cholecystitis Procedure(s) Performed Laparoscopic Cholecystectomy Surgeon Dr. Mick Correa Manufacturing Test Technician Surgeon(s) Maximiliano Ledezma PA-C Estimated Blood Loss 100mL Findings significant inflammation on gallbladder wall, the wall is thickening edema, Fluids (cc crystalloids) See anesthesia note Specimens A: gallbladder & contents Drains JOSE x1 Anesthesia general Complication(s) None Disposition Recovery Room / PACU
[2017-04-03] MEDS: FENTANYL CITRATE INJ 50 MCG/1 ML 2 ML VIAL IV PRN ×2 (13:47→13:54)
--- NOTE | 2017-04-03 14:07 | Anesthesiology Progress Note ---
Anesthesia Post Op Note Date & Time Apr 03, 2017 at 14:07 Vital Signs Pain Intensity: 4 Vital Signs Past 12 Hours Date Time Temp Pulse Resp B/P (MAP) Pulse Ox O2 Delivery O2 Flow Rate FiO2 04/03/17 14:00 53 12 126/67 92 Nasal Cannula 4 04/03/17 13:50 50 13 136/59 95 Oxymask 10 04/03/17 13:40 59 19 159/78 97 Oxymask 10 04/03/17 13:30 36.4 72 19 176/65 98 Oxymask 10 04/03/17 07:10 Room Air 04/03/17 07:09 37.3 77 14 148/70 (96) 93 Room Air Notes Mental Status: alert / awake / arousable, participated in evaluation Pt Amnestic to Procedure: Yes Nausea / Vomiting: adequately controlled Pain: adequately controlled Airway Patency, RR, SpO2: stable & adequate BP & HR: stable & adequate Hydration State: stable & adequate Anesthetic Complications: no major complications apparent
--- NOTE | 2017-04-03 17:26 | Progress Note ---
Subjective Date of Service: Apr 03, 2017. Problem List Medical Problems: (1) Acute cholecystitis Status: Acute Objective Vital Signs Date Time Temp Pulse Resp B/P (MAP) Pulse Ox O2 Delivery O2 Flow Rate FiO2 04/03/17 16:33 36.3 60 18 149/73 (98) 96 Nasal Cannula 4.0 04/03/17 15:40 96 Nasal Cannula 4.0 04/03/17 14:59 36.3 50 18 170/80 (110) 96 Nasal Cannula 4.0 04/03/17 14:30 36.6 53 18 158/76 (103) 96 Nasal Cannula 4.0 04/03/17 14:30 96 Nasal Cannula 4.0 04/03/17 14:20 59 15 145/68 98 Nasal Cannula 4 04/03/17 14:10 36.4 54 16 136/60 97 Nasal Cannula 4 04/03/17 14:00 53 12 126/67 92 Nasal Cannula 4 04/03/17 13:50 50 13 136/59 95 Oxymask 10 04/03/17 13:40 59 19 159/78 97 Oxymask 10 04/03/17 13:30 36.4 72 19 176/65 98 Oxymask 10 04/03/17 07:10 Room Air 04/03/17 07:09 37.3 77 14 148/70 (96) 93 Room Air 04/02/17 23:43 Room Air 04/02/17 22:55 36.7 47 16 145/54 (84) 96 Room Air Laboratory Results Last 24 Hours Test 04/03/17 08:06 White Blood Count 6.47 K/uL Red Blood Count 4.12 M/uL Hemoglobin 13.2 g/dL Hematocrit 39.7 % Mean Corpuscular Volume 96.4 fL Mean Corpuscular Hemoglobin 32.0 pg Mean Corpuscular Hemoglobin Concent 33.2 g/dl RDW Standard Deviation 51.3 fL RDW Coefficient of Variation 14.5 % Platelet Count 149 K/uL Mean Platelet Volume 9.6 fL Sodium Level 140 mmol/L Potassium Level 3.7 mmol/L Chloride Level 107 mmol/L Carbon Dioxide Level 25 mmol/L Anion Gap 9.0 mmol/L Blood Urea Nitrogen 17 mg/dl Creatinine 0.80 mg/dl Est Creatinine Clear Calc Drug Dose 77.9 ml/min Estimated GFR () 95.1 Estimated GFR (Non- 82.0 BUN/Creatinine Ratio 20.8 Random Glucose 110 mg/dl Calcium Level 8.7 mg/dl Total Bilirubin 1.2 mg/dl Aspartate Amino Transf (AST/SGOT) 56 U/L Alanine Aminotransferase (ALT/SGPT) 115 U/L Alkaline Phosphatase 140 U/L Total Protein 6.1 gm/dl Albumin 2.7 gm/dl Globulin 3.4 gm/dl Albumin/Globulin Ratio 0.8 Assessment and Plan 86yo male -with acute cholecystitis, s/p ercp with anticipated cholecystectomy this week acute cholangitis with acute cholecystitis - s/p ERCP with removal of several CBD stones & placement of pancreatic/CBD stents. cholecystectomy 04/03 Cont IV zosyn. surgery to advance diet post procedure sepsis - resolved. coronary artery disease, stable and without symptoms s/p [place] in 1995; s/p CABG 2002 . beta stefanie. resume aspirin post op h/o BPH continues with no urinary symptoms HTN - toprol xl. hyperlipidemia - hold statin restart on discharge DVT proph SCDs Continued [facility] stay due to: multiple IV medications needed Discharge planning: home
[2017-04-03] MEDS: MoRPHine SULFATE 2 MG/ML CARP IV PRN (20:29)
[2017-04-04] VITALS (8 sets, daily range): BP systolic 116–171; BP diastolic 56–82; PULSE 66–97; TEMP 36.8–38.5; O2SAT 91–95
[2017-04-04 06:09] LABS: BASO % 0.2 %; BASO ABS # 0.02 K/uL (0-0.2); COMPLETE YES; EOS % 1.2 %; HEMATOCRIT 37.5 % (42-52); IG% 0.6 %; LYMPH % 11.7 %; LYMPH ABS # 1.09 K/uL (1.2-3.4); MEAN CELL VOLUME 97.4 fL (80-100); MEAN CORPUSCULAR HEMOGLOBIN 32.7 pg (25-34); MEAN CORPUSCULAR HGB CONC 33.6 g/dl (32-36); MEAN PLATELET VOLUME 9.1 fL (7.4-10.4); MONO % 7.6 %; NEUT % 78.7 %; PLATELET COUNT 149 K/uL (130-400); RED BLOOD COUNT 3.85 M/uL (4.7-6.1); WHITE BLOOD COUNT 9.32 K/uL (4.8-10.8)
[2017-04-04 06:37] LABS: BUN/CREATININE RATIO 20.8 (10-20); CALCIUM 8.3 mg/dl (8.5-10.1); CREATININE 0.67 mg/dl (0.60-1.40)
[2017-04-04 06:39] LABS: ALB/GLOB RATIO 0.7 (0.9-2)
--- NOTE | 2017-04-04 07:08 | OPERATIVE REPORT ---
DATE OF OPERATION: 04/03/2017 PREOPERATIVE DIAGNOSIS: Acute cholecystitis with cholelithiasis. POSTOPERATIVE DIAGNOSIS: Same. PROCEDURE: Laparoscopic cholecystectomy. SURGEON: Dr. Leela Correa. RN RESOURCE NURSE: Audra Ledezma PA-C. ANESTHESIA: General. ESTIMATED BLOOD LOSS: About 100 mL FINDINGS: Significant inflammation of the gallbladder, the gallbladder showing significant edema and wall thickening. COMPLICATIONS: None. INDICATION FOR THE PROCEDURE: This is an 86-year-old gentleman who presented to the ED with a 3-day history of abdominal pain and the patient had a CT scan and ultrasound showing acute cholecystitis and cholelithiasis. Also, the patient had developed cholangitis. The patient had an ERCP by the GI doctor. Since then the patient felt much better and today we decided to take the patient to the OR to do laparoscopic cholecystectomy, possible open, possible cholangiogram. I did talk to the patient about the benefit and risk, alternate procedure. I indicated the risks may include but not limited such as bleeding, infection, injury to common bile duct, injury to the bowel, bile leak, may need an ERCP again, may do subtotal cholecystectomy, myocardial infarction, DVT, stroke and even . The patient understands and he signed informed consent and I answered all questions. DETAILS OF PROCEDURE: We brought the patient to the OR, put the patient in supine position. The patient received SCDs on bilateral legs to prevent DVT. Also, the patient received 2 grams of Ancef IV for prophylactic antibiotic. The patient received general anesthesia without difficulty. The abdomen was prepped and draped in routine sterile fashion. After timeout, we injected local anesthesia just above umbilicus, made about 1.5 cm incision just above umbilicus, opened fascia and opened peritoneum under direct vision. I put a Rolanda trocar in, connected to CO2 to create pneumoperitoneum. Flow rate 6 liter per minute, pressure not more than 14 mmHg. Once we got a nice pneumoperitoneum, we put two 5 mm trocar in the right upper quadrant, one 10 mm trocar in the epigastric area. Once all trocars were in, we looked in the abdomen around through the camera, showed normal findings in the stomach, small-bowel, large bowel, liver; however, the gallbladder showed significant inflammation, gallbladder wall with significant wall thickening and edema. There was some omentum covering the gallbladder. The diagnosis was acute cholecystitis. So we put another grasper to hold the base of the gallbladder, put in the direction of the diaphragm. Also, we used a needle to decompress the gallbladder based on the gallbladder's significant distention. Then, we put another grasper to hold the pouch of the gallbladder, put latter to expose the triangle of Calot. The cystic duct was identified and mobilized. I put two 5 mm metal clips on the proximal cystic duct and also I used one 10 mm clip to put on the proximal cystic duct, one 5 mm metal clip on the proximal cystic duct. Then, I used scissors to transect the cystic duct. Then, the cystic artery was identified and I put two 5 mm metal clips on the proximal cystic artery and one on the distal cystic artery. I used scissors to transect the cystic artery. The cystic artery showed significant inflammation around the cyst artery, also an enlarged lymph node. We left the enlarged lymph node behind. Then, I used a Bovie to take down the gallbladder through the liver bed, and during the takedown, there was some bleeding and oozing on the liver bed. We used Bovie to stop the bleeding. Rechecked, no active bleeding, no bile leak after we took out the gallbladder. We took out the gallbladder through the catch bag. Then, we reinserted Rolanda trocar and created pneumoperitoneum again, looked around the abdomen, showing normal finding, no bleeding or bile leak from the liver bed. Based on the patient's significant inflammation of the gallbladder, we decided to put a 10 mm JOSE drainage in and then we removed all trocars under direct vision. No active bleeding from trocar sites. Pneumoperitoneum was released. Then, I used 2-0 silk to fix the JOSE drainage on the skin and we closed the umbilical fascial layer by using #1 Vicryl [id number] x2, closed the subcutaneous layer by using 2-0 Vicryl continuous running, closed skin by using 4-0 Vicryl and closed the epigastric incision by using #1 Vicryl [id number] x2 to close the fascial layer, closed subcutaneous layer by using 2-0 Vicryl, closed skin by using 4-0 Vicryl, another two 5 mm trocar sites were closed only by using 4-0 Vicryl. I put a dressing on. The patient tolerated the procedure well. After the procedure, I did talk to the patient, family member, the patient's and the patient's daughter on the phone about the OR finding and procedure we did; they understood. All instrument, needle and sponge count correct x2 at the end of case and the patient transferred to recovery room in stable condition. The specimen sent to pathology. I attest to the content of the Intraoperative Record and any orders documented therein. Any exception s are noted below.
[2017-04-04] MEDS: MoRPHine SULFATE 2 MG/ML CARP IV PRN ×2 (07:34→14:19)
[2017-04-04] MEDS: PIPERACILL/TAZOBAC IV 3.375 GM in DEXTROSE 5% 100ML 100 ML IV SCH ×3 (07:36→23:32)
--- NOTE | 2017-04-04 08:15 | Anesthesiology Progress Note ---
Anesthesia Post Op Note Date & Time Apr 04, 2017 at 08:14 Vital Signs Pain Intensity: 8.0 Vital Signs Past 12 Hours Date Time Temp Pulse Resp B/P (MAP) Pulse Ox O2 Delivery O2 Flow Rate FiO2 04/04/17 07:46 37.3 66 16 128/64 (85) 93 Nasal Cannula 4.0 04/04/17 07:35 Nasal Cannula 2.0 04/04/17 03:37 36.8 97 18 171/82 (111) 95 Nasal Cannula 4.0 04/04/17 00:05 Nasal Cannula 2.0 04/03/17 22:45 37.1 65 18 135/69 (91) 96 Nasal Cannula 4.0 Notes Mental Status: alert / awake / arousable, participated in evaluation Pt Amnestic to Procedure: Yes Nausea / Vomiting: adequately controlled Pain: adequately controlled Airway Patency, RR, SpO2: stable & adequate BP & HR: stable & adequate Hydration State: stable & adequate Anesthetic Complications: no major complications apparent
[2017-04-04] MEDS: METOPROLOL SUCC 25MG EXT REL TAB PO SCH (08:52)
[2017-04-04] MEDS: MULTIVITAMIN TAB PO SCH (08:52)
[2017-04-04] MEDS: FINASTERIDE 5 MG TAB PO SCH (08:52)
[2017-04-04] MEDS ORDERED: OXYCODONE/ACETAMINOPHEN 5-325 TAB PO PRN (10:15)
--- NOTE | 2017-04-04 10:51 | Surgery Progress Note ---
Surgery Progress Note Date of Service Apr 04, 2017. Subjective Post OP Day: 1 (POD # 1 s/p laparoscopic cholecystectomy, POD # 5 ERCP) having moderate pain, controlled with IV Morphine. Has not had any oral pain medication Denies nausea or vomiting. Tolerating clear liquids so far for breakfast some flatus, no bowel movement difficulty getting out of bed, sitting up and standing due to the pain Objective Vital Signs: Date Time Temp Pulse Resp B/P (MAP) Pulse Ox O2 Delivery O2 Flow Rate FiO2 04/04/17 09:05 93 Nasal Cannula 4.0 04/04/17 07:46 37.3 66 16 128/64 (85) 93 Nasal Cannula 4.0 04/04/17 07:35 Nasal Cannula 2.0 04/04/17 03:37 36.8 97 18 171/82 (111) 95 Nasal Cannula 4.0 04/04/17 00:05 Nasal Cannula 2.0 04/03/17 22:45 37.1 65 18 135/69 (91) 96 Nasal Cannula 4.0 04/03/17 17:30 36.5 62 16 162/71 (101) 97 Nasal Cannula 4.0 04/03/17 16:33 36.3 60 18 149/73 (98) 96 Nasal Cannula 4.0 04/03/17 15:40 96 Nasal Cannula 4.0 04/03/17 14:59 36.3 50 18 170/80 (110) 96 Nasal Cannula 4.0 04/03/17 14:30 36.6 53 18 158/76 (103) 96 Nasal Cannula 4.0 04/03/17 14:30 96 Nasal Cannula 4.0 04/03/17 14:20 59 15 145/68 98 Nasal Cannula 4 04/03/17 14:10 36.4 54 16 136/60 97 Nasal Cannula 4 04/03/17 14:00 53 12 126/67 92 Nasal Cannula 4 04/03/17 13:50 50 13 136/59 95 Oxymask 10 04/03/17 13:40 59 19 159/78 97 Oxymask 10 04/03/17 13:30 36.4 72 19 176/65 98 Oxymask 10 General Appearance: WD/WN, no apparent distress Head: normocephalic, atraumatic Neck: trachea midline Respiratory/Chest: lungs clear, normal breath sounds, no respiratory distress, no accessory muscle use, + decreased breath sounds (patient not taking deep breaths due to surgical pain) Cardiovascular: regular rate, rhythm, no murmur Abdomen: non distended, soft, + tenderness (appropriate post op at incision sites, mostly in RUQ) Incision(s): clean, dry, intact (dressings clean and dry, incisions not inspected) Laboratory Results: Results Past 24 Hours Test 04/04/17 05:39 Range/Units White Blood Count 9.32 4.8-10.8 K/uL Red Blood Count 3.85 4.7-6.1 M/uL Hemoglobin 12.6 14.0-18.0 g/dL Hematocrit 37.5 42-52 % Mean Corpuscular Volume 97.4 80-100 fL Mean Corpuscular Hemoglobin 32.7 25-34 pg Mean Corpuscular Hemoglobin Concent 33.6 32-36 g/dl Platelet Count 149 130-400 K/uL Mean Platelet Volume 9.1 7.4-10.4 fL Neutrophils (%) (Auto) 78.7 % Lymphocytes (%) (Auto) 11.7 % Monocytes (%) (Auto) 7.6 % Eosinophils (%) (Auto) 1.2 % Basophils (%) (Auto) 0.2 % Neutrophils # (Auto) 7.33 1.4-6.5 K/uL Lymphocytes # (Auto) 1.09 1.2-3.4 K/uL Monocytes # (Auto) 0.71 0.11-0.59 K/uL Eosinophils # (Auto) 0.11 0-0.5 K/uL Basophils # (Auto) 0.02 0-0.2 K/uL RDW Standard Deviation 53.3 36.4-46.3 fL RDW Coefficient of Variation 15.0 11.5-14.5 % Immature Granulocyte % (Auto) 0.6 % Immature Granulocyte # (Auto) 0.06 0.00-0.02 K/uL Sodium Level 135 136-145 mmol/L Potassium Level 4.0 3.5-5.1 mmol/L Chloride Level 102 98-107 mmol/L Carbon Dioxide Level 26 21-32 mmol/L Anion Gap 7.0 3-11 mmol/L Blood Urea Nitrogen 14 7-18 mg/dl Creatinine 0.67 0.60-1.40 mg/dl Est Creatinine Clear Calc Drug Dose 93.0 ml/min Estimated GFR () 102.3 Estimated GFR (Non- 88.2 BUN/Creatinine Ratio 20.8 10-20 Random Glucose 141 70-99 mg/dl Calcium Level 8.3 8.5-10.1 mg/dl Total Bilirubin 1.3 0.2-1 mg/dl Aspartate Amino Transf (AST/SGOT) 56 15-37 U/L Alanine Aminotransferase (ALT/SGPT) 102 12-78 U/L Alkaline Phosphatase 122 45-117 U/L Total Protein 6.0 6.4-8.2 gm/dl Albumin 2.4 3.4-5.0 gm/dl Globulin 3.6 2.5-4.0 gm/dl Albumin/Globulin Ratio 0.7 0.9-2 Assessment & Plan POD # 1 s/p laparoscopic cholecystectomy, POD # 5 s/p ERCP. Vitals stable, currently on 4.0 liters nasal canula. No leukocytosis. Adewuate urine output. T. bili slightly elevated but AST, ALT, and alk phos improved. Moderate post surgical pain, controlled with IV meds. Abdomen soft, tenderness appropriate. Plan: continue Pain management with IV morphine however will add PO Percocet and use Morphine only as breakthrough continue clear liquids, advance to full liquids for dinner encourage incentive spirometry encourage OOB to chair and ambulation with assistance continue JOSE drain to bulb suction Would keep patient overnight given need for pain control continue medical management repeat am labs Dr. Correa has seen and examined patient, agrees with above
[2017-04-04] MEDS: D5W AND LACTATED RINGERS 1,000 ML IV SCH (12:24)
--- NOTE | 2017-04-04 13:30 | Hospitalist Progress Note ---
Hospitalist Progress Note Date of Service Apr 04, 2017. (Jaquelin Moncada PA-C) Subjective Pt evaluation today including: conversation w/ patient, physical exam, chart review, lab review, review of studies, review of inpatient medication list Patient seen and evaluated. No acute events overnight. Reporting a decent amount of abdominal pain and difficulty moving around due to pain. Hasn't utilized much pain medication. Surgery added oral meds and will keep IV for breakthrough pain. Patient on a full liquid diet at this point. Denies nausea or vomiting. Constitutional: No fever, No chills Respiratory: No shortness of breath Cardiovascular: No chest pain Abdomen: + pain (incisional), No nausea, No vomiting, No diarrhea, No constipation Male : No dysuria Heme: No abnormal bleeding/bruising (Jaquelin Moncada, ANNABELLAC) Medications Current Inpatient Medications Medications (Trade) Dose Ordered Sig/Nayely Route Start Time Stop Time Status Last Admin Dose Admin Ondansetron HCl (Zofran Inj) 4 mg Q6H PRN IV 03/30/17 14:45 04/29/17 14:44 Metoprolol Succinate (Toprol Xl Tab) 25 mg QAM PO 03/31/17 09:00 04/30/17 08:59 04/04/17 08:52 25 MG Multivitamins (Multivitamin Tab) 1 tab DAILY PO 03/31/17 09:00 04/30/17 08:59 04/04/17 08:52 1 TAB Miscellaneous Information (Order Awaiting Action) 1 ea QS N/A 03/31/17 08:00 04/30/17 07:59 Morphine Sulfate (MoRPHine SULFATE INJ) 2 mg Q4 PRN IV 03/30/17 15:15 04/13/17 15:14 04/04/17 07:34 2 MG Enoxaparin Sodium (Lovenox Inj) 40 mg QAM SQ 03/31/17 09:00 04/30/17 08:59 Future Hold 04/02/17 09:44 40 MG Piperacillin Sod/ Tazobactam Sod 3.375 gm/Dextrose 115 ml @ 28.75 mls/ hr Q8H IV 03/31/17 00:00 04/14/17 00:00 04/04/17 07:36 28.75 MLS/HR Piperacillin Sod/ Tazobactam Sod (Consult) 1 ea UD PRN N/A 03/30/17 17:45 04/29/17 17:44 Morphine Sulfate (MoRPHine SULFATE INJ) 4 mg Q4 PRN IV 03/30/17 19:00 04/13/17 18:59 Dextrose/Lactated Ringer's 1,000 ml @ 75 mls/hr [id number] IV 03/31/17 12:00 04/30/17 11:59 04/04/17 12:24 75 MLS/HR Finasteride (Proscar Tab) 5 mg QAM PO 04/01/17 10:00 05/01/17 09:59 04/04/17 08:52 5 MG Oxycodone/ Acetaminophen (Percocet 5-325mg Tab) `1-2 tabs for pain 1 tab ... Q4H PRN PO 04/04/17 10:15 04/18/17 10:14 Docusate Sodium (coLACE CAP) 100 mg BID PO 04/04/17 21:00 05/04/17 20:59 (Jaquelin Moncada, PA-C) Objective Vital Signs Date Time Temp Pulse Resp B/P (MAP) Pulse Ox O2 Delivery O2 Flow Rate FiO2 04/04/17 11:18 37.1 72 24 116/56 (76) 92 Nasal Cannula 4.0 04/04/17 09:05 93 Nasal Cannula 4.0 04/04/17 07:46 37.3 66 16 128/64 (85) 93 Nasal Cannula 4.0 04/04/17 07:35 Nasal Cannula 2.0 04/04/17 03:37 36.8 97 18 171/82 (111) 95 Nasal Cannula 4.0 04/04/17 00:05 Nasal Cannula 2.0 04/03/17 22:45 37.1 65 18 135/69 (91) 96 Nasal Cannula 4.0 04/03/17 17:30 36.5 62 16 162/71 (101) 97 Nasal Cannula 4.0 04/03/17 16:33 36.3 60 18 149/73 (98) 96 Nasal Cannula 4.0 04/03/17 15:40 96 Nasal Cannula 4.0 04/03/17 14:59 36.3 50 18 170/80 (110) 96 Nasal Cannula 4.0 04/03/17 14:30 36.6 53 18 158/76 (103) 96 Nasal Cannula 4.0 04/03/17 14:30 96 Nasal Cannula 4.0 04/03/17 14:20 59 15 145/68 98 Nasal Cannula 4 04/03/17 14:10 36.4 54 16 136/60 97 Nasal Cannula 4 04/03/17 14:00 53 12 126/67 92 Nasal Cannula 4 04/03/17 13:50 50 13 136/59 95 Oxymask 10 04/03/17 13:40 59 19 159/78 97 Oxymask 10 04/03/17 13:30 36.4 72 19 176/65 98 Oxymask 10 (Jaquelin Moncada PA-C) Physical Exam General Appearance: WD/WN, no apparent distress Eyes: sclerae normal ENT: hearing grossly normal Neck: supple Respiratory/Chest: lungs clear, normal breath sounds, no respiratory distress, no accessory muscle use Cardiovascular: regular rate, rhythm, no gallop, no murmur Abdomen: normal bowel sounds, soft, + pertinent finding (multiple dressings that have dried drainage; JOSE drain with serosang fluid) Extremities: no pedal edema, no calf tenderness Neurologic/Psychiatric: alert, oriented x 3 Skin: normal color, warm/dry (Jaquelin Moncada PA-C) Laboratory Results Last 24 Hours Test 04/04/17 05:39 White Blood Count 9.32 K/uL Red Blood Count 3.85 M/uL Hemoglobin 12.6 g/dL Hematocrit 37.5 % Mean Corpuscular Volume 97.4 fL Mean Corpuscular Hemoglobin 32.7 pg Mean Corpuscular Hemoglobin Concent 33.6 g/dl Platelet Count 149 K/uL Mean Platelet Volume 9.1 fL Neutrophils (%) (Auto) 78.7 % Lymphocytes (%) (Auto) 11.7 % Monocytes (%) (Auto) 7.6 % Eosinophils (%) (Auto) 1.2 % Basophils (%) (Auto) 0.2 % Neutrophils # (Auto) 7.33 K/uL Lymphocytes # (Auto) 1.09 K/uL Monocytes # (Auto) 0.71 K/uL Eosinophils # (Auto) 0.11 K/uL Basophils # (Auto) 0.02 K/uL RDW Standard Deviation 53.3 fL RDW Coefficient of Variation 15.0 % Immature Granulocyte % (Auto) 0.6 % Immature Granulocyte # (Auto) 0.06 K/uL Sodium Level 135 mmol/L Potassium Level 4.0 mmol/L Chloride Level 102 mmol/L Carbon Dioxide Level 26 mmol/L Anion Gap 7.0 mmol/L Blood Urea Nitrogen 14 mg/dl Creatinine 0.67 mg/dl Est Creatinine Clear Calc Drug Dose 93.0 ml/min Estimated GFR () 102.3 Estimated GFR (Non- 88.2 BUN/Creatinine Ratio 20.8 Random Glucose 141 mg/dl Calcium Level 8.3 mg/dl Total Bilirubin 1.3 mg/dl Aspartate Amino Transf (AST/SGOT) 56 U/L Alanine Aminotransferase (ALT/SGPT) 102 U/L Alkaline Phosphatase 122 U/L Total Protein 6.0 gm/dl Albumin 2.4 gm/dl Globulin 3.6 gm/dl Albumin/Globulin Ratio 0.7 (Jaquelin Moncada, SANTA) Assessment and Plan 86yo male -with acute cholecystitis, s/p ercp with anticipated cholecystectomy this week Sepsis (RESOLVED) Acute Cholangitis with Acute Cholecystitis S/P ERCP with CBD Stone Removal and Pancreatic/CBD Stent: - S/P Lap Deanna on 04/03 - doesn't have good pain control at this point but using minimal medications - will utilize oral meds with IV morphine for breakthrough - Zosyn for antibiotic coverage CAD S/P AR (1995) S/P CABG (2002): - Hold ASA and can resume when cleared by surgery/GI - Toprol XL 25 mg daily BPH: Stable - Proscar 5 mg daily HTN: Stable - Toprol as above HLD: - Statin on hold due to abnormal LFTs DVT Prophylaxis: Ambulation Disposition: - Will await for better pain management and monitor diet tolerance - possible D/ C tomorrow or next day Continued [facility] stay due to: inadequate oral pain control Discharge planning: home (Jaquelin Monacda, ANNABELLAC) PA Physician Supervision Note: I interviewed and examined the patient. Discussed with Jaquelin Moncada PAC and agree with findings and plan as documented in the note. Any exceptions or clarifications are listed here: None Patient is markedly uncomfortable in his abdomen after surgery painful to move his abdomen is slightly distended bowel sounds are hypoactive. vital signs show patient be afebrile Abdomen is as above Status post cholecystectomy for cholecystitis with significant postoperative pain and hopefully this will improve every day we'll continue IV antibiotics and pain control if pain worsens may consider evaluation with repeat CT scan Documented By: Ever Marin (Ever Marin M.D.)
[2017-04-04] MEDS: DOCUSATE SODIUM 100 MG CAP PO SCH (20:27)
[2017-04-05] MEDS ORDERED: NAPROXEN 250 MG TAB PO PRN (04:45)
[2017-04-05] MEDS: D5W AND LACTATED RINGERS 1,000 ML IV SCH ×2 (04:52→21:21)
[2017-04-05 07:46] VITALS: BP 149/68; PULSE 62; TEMP 37.1; O2SAT 91
[2017-04-05] MEDS: PIPERACILL/TAZOBAC IV 3.375 GM in DEXTROSE 5% 100ML 100 ML IV SCH ×3 (08:10→23:45)
[2017-04-05 08:23] LABS: HEMATOCRIT 35.7 % (42-52); MEAN CELL VOLUME 97.5 fL (80-100); MEAN CORPUSCULAR HEMOGLOBIN 32.2 pg (25-34); MEAN CORPUSCULAR HGB CONC 33.1 g/dl (32-36); MEAN PLATELET VOLUME 10.1 fL (7.4-10.4); PLATELET COUNT 134 K/uL (130-400); RED BLOOD COUNT 3.66 M/uL (4.7-6.1); WHITE BLOOD COUNT 7.36 K/uL (4.8-10.8)
[2017-04-05] MEDS: DOCUSATE SODIUM 100 MG CAP PO SCH ×2 (09:03→20:38)
[2017-04-05] MEDS: FINASTERIDE 5 MG TAB PO SCH (09:03)
[2017-04-05] MEDS: MULTIVITAMIN TAB PO SCH (09:03)
[2017-04-05] MEDS: METOPROLOL SUCC 25MG EXT REL TAB PO SCH (09:04)
[2017-04-05 09:05] LABS: ALB/GLOB RATIO 0.6 (0.9-2); BUN/CREATININE RATIO 12.9 (10-20); CALCIUM 8.5 mg/dl (8.5-10.1); CREATININE 0.65 mg/dl (0.60-1.40); POTASSIUM 3.7 mmol/L (3.5-5.1)
[2017-04-05] MEDS ORDERED: KETOROLAC TROMETHAMINE 15 MG/ML VIAL IV. STA (09:05)
--- NOTE | 2017-04-05 09:19 | Surgery Progress Note ---
Surgery Progress Note Date of Service Apr 05, 2017. Subjective Post OP Day: 2 (s/p shakir correia, POD#5 ERCP) has arthritic pain in hand abdominal pain still present, unsure if he has had any oral pain medication, believes he has only had IV pain medication sat out of bed yesterday for a few hours, little ambulation tolerating full liquids, no nausea or vomiting no flatus or bowel movement Objective Vital Signs: Date Time Temp Pulse Resp B/P (MAP) Pulse Ox O2 Delivery O2 Flow Rate FiO2 04/05/17 07:46 37.1 62 20 149/68 (95) 91 Room Air 04/05/17 07:10 Room Air 04/04/17 23:40 Room Air 04/04/17 22:50 37.0 68 16 120/68 (85) 91 Room Air 04/04/17 21:44 37.3 04/04/17 15:45 Room Air 04/04/17 15:09 37.5 04/04/17 15:04 38.5 66 18 133/67 (89) 91 Room Air 04/04/17 11:18 37.1 72 24 116/56 (76) 92 Nasal Cannula 4.0 General Appearance: WD/WN, no apparent distress Head: normocephalic, atraumatic Neck: trachea midline Respiratory/Chest: no respiratory distress, no accessory muscle use Abdomen: soft, + distended (mild distention), + tenderness (appropriate post op , mostly in RUQ near incisions) Incision(s): clean, dry (dressings clean and dry) Laboratory Results: Results Past 24 Hours Test 04/05/17 07:34 Range/Units White Blood Count 7.36 4.8-10.8 K/uL Red Blood Count 3.66 4.7-6.1 M/uL Hemoglobin 11.8 14.0-18.0 g/dL Hematocrit 35.7 42-52 % Mean Corpuscular Volume 97.5 80-100 fL Mean Corpuscular Hemoglobin 32.2 25-34 pg Mean Corpuscular Hemoglobin Concent 33.1 32-36 g/dl RDW Standard Deviation 52.9 36.4-46.3 fL RDW Coefficient of Variation 14.7 11.5-14.5 % Platelet Count 134 130-400 K/uL Mean Platelet Volume 10.1 7.4-10.4 fL Sodium Level 138 136-145 mmol/L Potassium Level 3.7 3.5-5.1 mmol/L Chloride Level 107 98-107 mmol/L Carbon Dioxide Level 25 21-32 mmol/L Anion Gap 6.0 3-11 mmol/L Blood Urea Nitrogen 8 7-18 mg/dl Creatinine 0.65 0.60-1.40 mg/dl Est Creatinine Clear Calc Drug Dose 95.9 ml/min Estimated GFR () 103.5 Estimated GFR (Non- 89.3 BUN/Creatinine Ratio 12.9 10-20 Random Glucose 133 70-99 mg/dl Calcium Level 8.5 8.5-10.1 mg/dl Total Bilirubin 1.3 0.2-1 mg/dl Aspartate Amino Transf (AST/SGOT) 47 15-37 U/L Alanine Aminotransferase (ALT/SGPT) 82 12-78 U/L Alkaline Phosphatase 110 45-117 U/L Total Protein 5.6 6.4-8.2 gm/dl Albumin 2.1 3.4-5.0 gm/dl Globulin 3.5 2.5-4.0 gm/dl Albumin/Globulin Ratio 0.6 0.9-2 Assessment & Plan POD # 2 s/p laparoscopic cholecystectomy, POD # 5 s/p ERCP. Vitals stable. No leukocytosis. Adequate urine output. T. bili stable at 1.3 but AST, ALT improved. Alk phos normalized. Moderate post surgical pain, controlled with IV meds. Abdomen soft, tenderness appropriate. No flatus or bowel movement. Plan: Needs to utilize oral pain medication with IV only for breakthrough (need to assess if pain controlled with oral meds for discharge) advance diet as tolerated encourage incentive spirometry encourage OOB to chair and ambulation with assistance discontinue JOSE drain continue medical management repeat liver profile tomorrow Dr. Correa has seen and examined patient, agrees with above
[2017-04-05 11:17] VITALS: BP 148/73; PULSE 60; TEMP 37.2; O2SAT 92
--- NOTE | 2017-04-05 11:49 | Progress Note ---
Progress Note Date of Service Apr 05, 2017. Progress Note Late Entry Pt s/p GETA for ERCP on 03/31/17. Anesthesia was uneventful, however, upon removal of tapes from the eyes, Sarah Kearns CRNA, noticed redness around both eyes without swelling. No other redness or swelling noted anywhere else. Pt was taken to PACU and recovered without any issues. VSS. Upon questioning patient by PACU nurse, pt stated that he just had a cryo treatment for skin procedure around the facial area. The thought was that the eye area was still sensitive from the recent treatment around the facial area. Since no other signs of allergic reaction was noted, no treatment was needed. Pt was seen again on 04/03/17 for his lap masood. Pt was made aware of the reaction around the eye area and was told that a different tape was going to be used this time to avoid another reaction. Pt agreed with plan. Tegaderm was used for the eyes during the lap masood and was removed without any complications or reactions.
--- NOTE | 2017-04-05 12:48 | Hospitalist Progress Note ---
Hospitalist Progress Note Date of Service Apr 05, 2017. (Jaquelin Moncada PA-C) Subjective Pt evaluation today including: conversation w/ patient, physical exam, chart review, lab review, review of studies, review of inpatient medication list Patient seen and evaluated. Continues to have abdominal pain but reporting improved from yesterday. Has utilized minimal pain medications. States his L fingers are more painful than his abdomen today. States he has arthritis and it is common for his pointer, middle, and ring finger to swell and ache. Denies H/O gout. Fingers are warm to touch but tenderness is not worsened by palpation. Middle finger is edematous. Naprosyn didn't help and will give Toradol x 1 to help with arthritic pain and any underlying abdominal pain. So far tolerating diet. No flatus or BM but states he feels like he will need to move his bowels today. Did have a fever yesterday and felt like he had fever overnight but denies feeling fevered at this point. Constitutional: No fever, No chills Respiratory: No cough, No shortness of breath Cardiovascular: No chest pain, No palpitations Abdomen: + pain, No nausea, No vomiting, No diarrhea, No constipation Musculoskeletal: No swelling, No calf pain Male : No dysuria Heme: No abnormal bleeding/bruising Skin: No rash, No itch (Jaquelin Moncada, ANNABELLAC) Medications Current Inpatient Medications Medications (Trade) Dose Ordered Sig/Nayely Route Start Time Stop Time Status Last Admin Dose Admin Ondansetron HCl (Zofran Inj) 4 mg Q6H PRN IV 03/30/17 14:45 04/29/17 14:44 Metoprolol Succinate (Toprol Xl Tab) 25 mg QAM PO 03/31/17 09:00 04/30/17 08:59 04/05/17 09:04 25 MG Multivitamins (Multivitamin Tab) 1 tab DAILY PO 03/31/17 09:00 04/30/17 08:59 04/05/17 09:03 1 TAB Miscellaneous Information (Order Awaiting Action) 1 ea QS N/A 03/31/17 08:00 04/30/17 07:59 Morphine Sulfate (MoRPHine SULFATE INJ) 2 mg Q4 PRN IV 03/30/17 15:15 04/13/17 15:14 04/04/17 14:19 2 MG Enoxaparin Sodium (Lovenox Inj) 40 mg QAM SQ 03/31/17 09:00 04/30/17 08:59 Future Hold 04/02/17 09:44 40 MG Piperacillin Sod/ Tazobactam Sod 3.375 gm/Dextrose 115 ml @ 28.75 mls/ hr Q8H IV 03/31/17 00:00 04/14/17 00:00 04/05/17 08:10 28.75 MLS/HR Piperacillin Sod/ Tazobactam Sod (Consult) 1 ea UD PRN N/A 03/30/17 17:45 04/29/17 17:44 Morphine Sulfate (MoRPHine SULFATE INJ) 4 mg Q4 PRN IV 03/30/17 19:00 04/13/17 18:59 Dextrose/Lactated Ringer's 1,000 ml @ 75 mls/hr [id number] IV 03/31/17 12:00 04/30/17 11:59 04/05/17 04:52 75 MLS/HR Finasteride (Proscar Tab) 5 mg QAM PO 04/01/17 10:00 05/01/17 09:59 04/05/17 09:03 5 MG Oxycodone/ Acetaminophen (Percocet 5-325mg Tab) `1-2 tabs for pain 1 tab ... Q4H PRN PO 04/04/17 10:15 04/18/17 10:14 Docusate Sodium (coLACE CAP) 100 mg BID PO 04/04/17 21:00 05/04/17 20:59 04/05/17 09:03 100 MG Naproxen (Naprosyn Tab) 250 mg Q12H PRN PO 04/05/17 04:45 05/05/17 04:44 04/05/17 04:52 250 MG (Jaquelin Moncada PA-C) Objective Vital Signs Date Time Temp Pulse Resp B/P (MAP) Pulse Ox O2 Delivery O2 Flow Rate FiO2 04/05/17 11: 37.2 60 20 148/73 (98) 92 Room Air 04/05/17 07:46 37.1 62 20 149/68 (95) 91 Room Air 04/05/17 07:10 Room Air 04/04/17 23:40 Room Air 04/04/17 22:50 37.0 68 16 120/68 (85) 91 Room Air 04/04/17 21:44 37.3 04/04/17 15:45 Room Air 04/04/17 15:09 37.5 04/04/17 15:04 38.5 66 18 133/67 (89) 91 Room Air (Jaquelin Moncada PA-C) Physical Exam General Appearance: WD/WN, no apparent distress Neck: supple, no JVD, trachea midline Respiratory/Chest: lungs clear, normal breath sounds, no respiratory distress, no accessory muscle use Cardiovascular: regular rate, rhythm, no gallop, no murmur Abdomen: normal bowel sounds, non tender, soft, + pertinent finding (JOSE drain with serosang discharge) Extremities: no pedal edema, no calf tenderness, + pertinent finding ( edematous L middle finger without erythema; limited ROM but no increased tenderness to palpation) Neurologic/Psychiatric: alert, oriented x 3 Skin: normal color, warm/dry (Jaquelin Moncada, ANNABELLAC) Laboratory Results Last 24 Hours Test 04/05/17 07:34 White Blood Count 7.36 K/uL Red Blood Count 3.66 M/uL Hemoglobin 11.8 g/dL Hematocrit 35.7 % Mean Corpuscular Volume 97.5 fL Mean Corpuscular Hemoglobin 32.2 pg Mean Corpuscular Hemoglobin Concent 33.1 g/dl RDW Standard Deviation 52.9 fL RDW Coefficient of Variation 14.7 % Platelet Count 134 K/uL Mean Platelet Volume 10.1 fL Sodium Level 138 mmol/L Potassium Level 3.7 mmol/L Chloride Level 107 mmol/L Carbon Dioxide Level 25 mmol/L Anion Gap 6.0 mmol/L Blood Urea Nitrogen 8 mg/dl Creatinine 0.65 mg/dl Est Creatinine Clear Calc Drug Dose 95.9 ml/min Estimated GFR () 103.5 Estimated GFR (Non- 89.3 BUN/Creatinine Ratio 12.9 Random Glucose 133 mg/dl Calcium Level 8.5 mg/dl Total Bilirubin 1.3 mg/dl Aspartate Amino Transf (AST/SGOT) 47 U/L Alanine Aminotransferase (ALT/SGPT) 82 U/L Alkaline Phosphatase 110 U/L Total Protein 5.6 gm/dl Albumin 2.1 gm/dl Globulin 3.5 gm/dl Albumin/Globulin Ratio 0.6 (Jaquelin Moncada PA-C) Assessment and Plan 86yo male -with acute cholecystitis, s/p ercp with anticipated cholecystectomy this week Sepsis (RESOLVED) Acute Cholangitis with Acute Cholecystitis S/P ERCP with CBD Stone Removal and Pancreatic/CBD Stent: - S/P Lap Deanna on 04/03 - pain is improving and LFTs/Bili remaining stable - still utilizes minimal pain medication - Zosyn for antibiotic coverage Osteoarthritis - L Hand: - Patient with acute flair of OA with edema and pain - denies H/O gout and no erythema or tenderness to palpation - Toradol IV x 1 dose CAD S/P ID (1995) S/P CABG (2002): - Hold ASA and can resume when cleared by surgery/GI - Toprol XL 25 mg daily BPH: Stable - Proscar 5 mg daily HTN: Stable - Toprol as above HLD: - Statin on hold due to abnormal LFTs DVT Prophylaxis: Ambulation Disposition: - Encourage good pain control and monitor diet advancement tolerance - possible D/C tomorrow Continued [facility] stay due to: inadequate oral pain control Discharge planning: home (Jaquelin Moncada, ANAM-C) PA Physician Supervision Note: I interviewed and examined the patient. Discussed with Jaquelin Moncada PAC and agree with findings and plan as documented in the note. Any exceptions or clarifications are listed here: None Patient is now status post cholecystectomy for 2 days he's doing much better although still having significant pain he did have some arthritic flare overnight which was remedied by Toradol Vital signs are stable he's still and taking reasonable by mouth intake and very tender to movement his abdomen is with bowel sounds present he head still operator in the surgical area and right upper quadrant is less protuberant less tense Cholecystectomy status post ERCP we'll continue treatment for cholecystitis advancing diet per surgical recommendations using nonsteroidals for arthritic flare Documented By: Ever Marin (Ever Marin M.D.)
--- NOTE | 2017-04-05 12:54 | Anesthesiology Progress Note ---
Anesthesia Post Op Note Date & Time Apr 05, 2017 at 12:50 Vital Signs Pain Intensity: 8.0 Vital Signs Past 12 Hours Date Time Temp Pulse Resp B/P (MAP) Pulse Ox O2 Delivery O2 Flow Rate FiO2 04/05/17 11:17 37.2 60 20 148/73 (98) 92 Room Air 04/05/17 07:46 37.1 62 20 149/68 (95) 91 Room Air 04/05/17 07:10 Room Air Notes Anesthetic Complications: During emergence I (Sarah Kearns CRNA) removed eye tapes from eyelids that we use to protect eyes from corneal abrasions. The tape came right of with ease but the patients skin was reddened and inflammed. There was a pin point dot of blood underneath his left eye. I applied pressure on it with gauze for about a minute and it stopped bleeding. The patient was notified what happened once he woke up from anesthesia. I notified Dr. Thompson the anesthesiologist and she spoke with the patient as well. The pt did not have any record of skin reactions to tape. We did his laparoscopic cholecystectomy later in the week and used tegaderm to cover his eyes during this case and he did not have any issues when we removed them at the end of case.
[2017-04-05 15:07] VITALS: BP 158/66; PULSE 57; TEMP 36.6; O2SAT 93
[2017-04-05] MEDS ORDERED: NURSING VERBAL MED ORDER ONE (16:15)
[2017-04-05] MEDS: OXYCODONE/ACETAMINOPHEN 5-325 TAB PO PRN (18:54)
[2017-04-05] MEDS ORDERED: POLYETHYLENE (MIRALAX) 17 GM PACK PO ONE (21:45)
[2017-04-05] MEDS ORDERED: POLYETHYLENE (MIRALAX) 17 GM PACK PO PRN (21:45)
[2017-04-05 22:57] VITALS: BP 167/51; PULSE 57; TEMP 37; O2SAT 94
[2017-04-06 07:44] VITALS: BP 151/70; PULSE 57; TEMP 36.6; O2SAT 94
[2017-04-06] MEDS: PIPERACILL/TAZOBAC IV 3.375 GM in DEXTROSE 5% 100ML 100 ML IV SCH ×2 (08:12→16:00)
[2017-04-06] MEDS: FINASTERIDE 5 MG TAB PO SCH (08:46)
[2017-04-06] MEDS: MULTIVITAMIN TAB PO SCH (08:46)
[2017-04-06] MEDS: DOCUSATE SODIUM 100 MG CAP PO SCH (08:46)
[2017-04-06] MEDS: METOPROLOL SUCC 25MG EXT REL TAB PO SCH (08:47)
[2017-04-06] MEDS: OXYCODONE/ACETAMINOPHEN 5-325 TAB PO PRN (08:51)
[2017-04-06 10:07] VITALS: O2SAT 94
--- NOTE | 2017-04-06 11:04 | Surgery Progress Note ---
Surgery Progress Note Date of Service Apr 06, 2017. Subjective Post OP Day: 3 (s/p laparoscopic cholecystectomy) + feeling well, + complaints (left hand pain, arthritic (more so than abdominal pain)), + ambulating, + flatus, + pain controlled, + diet (tolerating regular diet), No bowel movement, No nausea, No vomiting Objective Vital Signs: Date Time Temp Pulse Resp B/P (MAP) Pulse Ox O2 Delivery O2 Flow Rate FiO2 04/06/17 10:07 94 Room Air 04/06/17 07:44 36.6 57 18 151/70 (97) 94 Room Air 04/06/17 07:00 Room Air 04/05/17 23:35 Room Air 04/05/17 22:57 37.0 57 16 167/51 (89) 94 Room Air 04/05/17 15:20 Room Air 04/05/17 15:07 36.6 57 18 158/66 (96) 93 Room Air 04/05/17 11:17 37.2 60 20 148/73 (98) 92 Room Air General Appearance: WD/WN, no apparent distress Neck: trachea midline Respiratory/Chest: no respiratory distress, no accessory muscle use Abdomen: non distended, soft, + tenderness (very mild at incision sites) Incision(s): clean, dry (incision dressings clean and dry with some dried drainage present, JOSE drain site with drainage, serous on dressing), no erythema Laboratory Results: Results Past 24 Hours Test 04/06/17 06:26 Range/Units Total Bilirubin 1.1 0.2-1 mg/dl Direct Bilirubin 0.4 0-0.2 mg/dl Aspartate Amino Transf (AST/SGOT) 60 15-37 U/L Alanine Aminotransferase (ALT/SGPT) 90 12-78 U/L Alkaline Phosphatase 113 45-117 U/L Total Protein 5.6 6.4-8.2 gm/dl Albumin 2.1 3.4-5.0 gm/dl Assessment & Plan POD # 3 s/p laparoscopic cholecystectomy, POD # 6 s/p ERCP. Vitals stable. No leukocytosis. Adequate urine output. T. bili improved at 1.1 but AST, ALT slightly elevated compared to yesterday. Alk phos normalized. Mild post surgical pain, controlled with po Percocet. Abdomen soft, tenderness appropriate. + flatus no bowel movement. Tolerating regular diet and ambulating. Plan: From surgical standpoint he may be discharged home as he is tolerating regular diet, ambulating, and pain controlled with oral narcotics Discharge instructions reviewed Will be given Rx for pain as needed Follow-up with Dr. Correa in 1-2 weeks
--- NOTE | 2017-04-06 11:09 | Discharge Instructions ---
Discharge Instructions Date of Service Apr 06, 2017. Admission Reason for Admission: Cholecystitis Discharge Discharge Diagnosis / Problem: same Discharge Goals Goal(s): Decrease discomfort, Improve function Activity Recommendations Activity Limitations: as noted below No heavy lifting over 10 pounds for 2 weeks No strenuous activity until cleared by surgeon No submerging incisions underwater for 2 weeks (no swimming, bathing, or hot tubs) No driving while taking narcotic pain medication or until you are pain free . Instructions / Follow-Up Instructions / Follow-Up You may shower in 24 hours and then remove outer dressings Leave steri strips on incisions for another 7 days and then remove. they may fall off on their own that is okay. Keep the drain site covered with gauze as it may drain Walking and light activity is encouraged to prevent blood clots from forming Stool softener and plenty of water while taking narcotic pain medication Follow-up in surgical office in 1-2 weeks, please call office at [phone] to make an appointment Current Hospital Diet Patient's current hospital diet: Regular Diet Discharge Diet Recommended Diet: Regular Diet Procedures Procedures Performed: Laparoscopic Cholecystectomy Pending Studies Studies pending at discharge: no Medical Emergencies . Who to Call and When: Medical Emergencies: If at any time you feel your situation is an emergency, please call 911 immediately. . Non-Emergent Contact Non-Emergency issues call your: Primary Care Provider, Surgeon Call Non-Emergent contact if: you have a fever, temperature is above 101, your pain is not controlled, your pain is worsening, your pain is unusual for you, wound has increased drainage, wound has increased redness, wound has increased pain . "Provider Documentation" section prepared by Audra Ledezma. . VTE Core Measure Inpt VTE Proph given/why not?: SCD's [place] Drug Monitoring Program Search Results: patient reviewed within database, no issues identified
[2017-04-06 11:55] VITALS: BP 128/60; PULSE 57; TEMP 36.6; O2SAT 93
[2017-04-06] MEDS ORDERED: OXYC-57 PO ×2 (13:07→13:38)
[2017-04-06] MEDS ORDERED: CLC100 PO (13:07)
--- NOTE | 2017-04-06 13:16 | Discharge Instructions ---
Discharge Instructions Date of Service Apr 06, 2017. Admission Reason for Admission: Cholecystitis Discharge Discharge Diagnosis / Problem: Cholecystitis (Inflammation of the Gallbladder) Discharge Goals Goal(s): Decrease discomfort, Improve function, Increase independence Activity Recommendations Activity Limitations: per Instructions/Follow-up section (Please follow instructions from general surgery) . Instructions / Follow-Up Instructions / Follow-Up Acute Cholecystitis with Lap Cholecystectomy and Stent Placed in Pancreatic Duct - Dr. Humphrey's office is planning an abdominal xray that is ordered to complete in the next couple days and will notify you - Follow-up with Dr. Correa (Surgery) in one week - You may eat as tolerate but recommend a low-fat diet. - Continue to use your pain medication as prescribed - Will provide a prescription for follow-up blood work to have done in the next 2-3 days to check your liver tests -- Would recommend holding your Atorvastatin until after the results of the blood work to make sure your liver tests are normal Osteoarthritis - L Hand: - Continue to monitor this and please discuss with your family doctor if not improving in the next couple of days - Watch for increased swelling, redness, increased pain, and fever/chills - that could be a sign of gout or infection Current Hospital Diet Patient's current hospital diet: Regular Diet Discharge Diet Recommended Diet: Regular Diet Procedures Procedures Performed: Laparoscopic Cholecystectomy Pending Studies Studies pending at discharge: no Medical Emergencies . Who to Call and When: Medical Emergencies: If at any time you feel your situation is an emergency, please call 911 immediately. . Non-Emergent Contact Non-Emergency issues call your: Primary Care Provider Call Non-Emergent contact if: you have a fever, your pain is concerning you, you have any medication questions . . "Provider Documentation" section prepared by Jaquelin Moncada. . VTE Core Measure Inpt VTE Proph given/why not?: SCD's
[2017-04-06 15:12] VITALS: BP 127/57; PULSE 58; TEMP 36.7; O2SAT 92
[2017-04-06 15:37] VITALS: BP 127/57; PULSE 58; TEMP 36.7; O2SAT 92
--- NOTE | 2017-04-06 20:47 | Discharge Summary ---
Discharge Summary Date of Service Apr 06, 2017. (Jaquelin Moncada PA-C) Discharge Summary Admission Date: Mar 30, 2017 at 14:41 Discharge Date: Apr 06, 2017 Discharge Disposition: Home Principal Diagnosis: Acute Cholecystitis S/P Lap Deanna Problems/Secondary Diagnoses: 1. CAD S/P NH (1995) 2. S/P CABG (2002) 3. OA 4. BPH S/P TURP 5. HLD 6. Skin CA 7. SOMMER 8. HTN 9. S/P L TKA Immunizations: Have You Had Influenza Vaccine: Yes History of Tetanus Vaccine?: Yes History of Pneumococcal: Yes History of Hepatitis B Vaccine: No Procedures: ERCP: Impression: - Papillary stenosis. - One temporary stent was placed into the ventral pancreatic duct. - Choledocholithiasis and pus was found in the bile duct. Complete removal was accomplished by biliary sphincterotomy with needle knife and standard sphincterotome followed by balloon extraction. ULTRASOUND RIGHT UPPER QUADRANT ABDOMEN FINDINGS: Liver: The liver is mildly enlarged and demonstrates heterogeneously increased echotexture consistent with hepatic steatosis. There is no intrahepatic biliary ductal dilatation. The main portal vein is patent. Gallbladder: The gallbladder is filled with sludge and stones. The gallbladder wall is thickened and edematous, measuring up to 10 mm. Trace pericholecystic fluid is identified. A sonographic Jordan's sign is reportedly absent. The common bile duct measures up to 0.8 cm in diameter. Pancreas: Not well visualized due to overlying bowel gas. Right kidney: Survey images of the right kidney demonstrate normal size and echotexture. There is no hydronephrosis. Ascites: None. IMPRESSION: 1. Cholelithiasis and biliary sludge with sonographic evidence of acute cholecystitis. Surgical consultation is advised. 2. Hepatic steatosis. 3. The pancreas was not well visualized due to overlying bowel gas. Consultations: 1. Gastroenterology 2. General Surgery (Jaquelin Moncada PA-C) Medication Reconciliation New Medications: Docusate Sodium (Docusate Sodium) 100 Mg Cap 100 MG PO BID for 30 Days, #60 CAP Oxycodone/Acetaminophen 5MG/325MG (Percocet 5MG/325MG) Tab 1-2 TAB PO Q4H PRN for Pain for 3 Days, #20 TAB Take one tablet for pain level 1-5 and two tablets for pain level 6-10. Continued Medications: Aspirin (Aspirin Ec) 81 Mg Tab 81 MG PO DAILY Atorvastatin (Lipitor) 20 Mg Tab 20 MG PO QPM Hold this medication until after results of blood work to make sure liver tests are normal Clobetasol Propionate (Clobetasol Propionate) 45 Appln/15 Gm Oint 1 APPLN TOP PRN, GM Finasteride (Proscar) 5 Mg Tab 5 MG PO DAILY, TAB Fish Oil (Buckner-3) 1 Ea Cap 1400 MG PO DAILY Metoprolol Succ (Toprol Xl) (Toprol-Xl) 25 Mg Tabcr 25 MG PO QAM Multivitamin (Multivitamin) Tab 1 TAB PO DAILY Omeprazole (Prilosec) 20 Mg Capcr 20 MG PO DAILY, CAP Discharge Exam Review of Systems: Constitutional: No fever, No chills ENT: No nasal symptoms, No sore throat, No trouble swallowing Respiratory: No cough, No shortness of breath Cardiovascular: No chest pain, No palpitations Abdomen: + pain (minimal - incisional and RUQ), No nausea, No vomiting, No diarrhea, No constipation, No GI bleeding Musculoskeletal: + joint pain (L middle finger - arthritis), No swelling, No calf pain Genitourinary - Male: No dysuria Hematologic / Lymphatic: No abnormal bleeding/bruising Integumentary: No rash Physical Exam: General Appearance: WD/WN, no apparent distress Eyes: sclerae normal ENT: hearing grossly normal Neck: supple, no JVD, trachea midline Respiratory/Chest: lungs clear, normal breath sounds, no respiratory distress, no accessory muscle use Cardiovascular: regular rate, rhythm, no gallop, no murmur Abdomen / GI: normal bowel sounds, non tender, soft, + pertinent finding ( minimal dried drainage at site of previous JOSE drain that is sero sang; surgical incisions intact without erythema or discharge) Extremities: no calf tenderness, no pedal edema Neurologic/Psychiatric: alert, oriented x 3 Skin: normal color, warm/dry (Jaquelin Moncada, ANNABELLAC) Hospital Course ADMISSION: The patient is a pleasant 86-year-old male who was in his usual state of health until late yesterday afternoon. Maybe around 05:00 or so, he noted some right lower rib cage pain and then it progressed to lower in his abdomen. It is fairly sharp, fairly intense and it caused him to break out in a sweat. He does not note nausea or vomiting. He does not note fevers or chills. He was at a meeting. He had his friend bring him home from the meeting and he was just generally not feeling well afterwards. He then had a prompt evaluation by his PCP including HIDA scan and the HIDA scan was consistent with cholecystitis. His PCP contacted him to come to the ER and here , currently his pain is under control. He is not diaphoretic. He does not have any nausea. He does not have any chest pain. HOSPITAL COURSE: Mr. Mendes was admitted for Sepsis due to Acute Cholangitis and Acute Cholecystitis. He underwent ERCP with CBD stone removal and pancreatic duct stenting. He then underwent laparoscopic cholecystectomy which revealed significant edema and wall thickening. He completed a 7 day course of Zosyn during admission. POD #1 patient had significant abdominal pain and concern for bile leak. However clinically improved and LFTS/Bili trended and did not support bile leak. Recommendations for repeat LFTs to confirm they will continue to trend down. Will hold statin therapy until LFTs stabilize. GI planning a KUB as outpatient and follow-up with eventual stent removal. Gen Surg will follow-up in one week. Patient also noted to have edema of L middle finger that is common for his OA. Initially this finger was warm to touch but no erythema. He responded to Toradol IV x 1 dose. He denies H/O gout but recommended to continue coverage with pain medication and if not improved to follow-up with PCP in regards to this. Patient is afebrile and without leukocytosis. He is tolerating a diet and suitable for D/C home with outpatient follow-up. Total Time Spent: Greater than 30 minutes This includes examination of the patient, discharge planning, medication reconciliation, and communication with other providers. (Jaquelin Moncada PA-C) Discharge Instructions Please refer to the electronic Patient Visit Report (Discharge Instructions) for additional information. (Jaquelin Moncada PA-C) Additional Copies To Lonnie Cheung D.O. Reviewed: Pt Seen/Exam by Me (Bina Yu MD) History Physician Senior Hr Generalist Supervision Note: I interviewed and examined the patient. Discussed with ANAM Moncada and agree with findings and plan as documented in the note. Any exceptions or clarifications are listed here: Pt doing well on day of discharge, minimal pain. LFTs stable to slightly increased but clinically improved. Hector reg diet, passing flatus, no N/V. No CP or SOB. Vitals reviewed NAD RRR no mgr CTAB no wcr Abd +BS, soft, min ttp around incision sites, previous JOSE drains ite with bandage soaked with serosanguinous fluid, other incisions look great Ext no calf pain, no leg edema 86 yo male with a h/o CAD, HTN, SOMMER, OA, BPH, here with acute calculous cholecystitis and choledocholithiasis requiring ERCP with stent placement and lap deanna. Will need short term f/u with GI for KUB and eventual stent removal -f/u Surgery as planned -no further abx therapy recommended f/u PCP Documented By: Bina Yu (Bina Yu MD)
== END 2017-04-06 17:44 | disposition home or self-care (01) | DRG 854 ==
LOC: C.EDB 13:23 → C.MSW 14:41 → ENRESERV 15:27
PROVIDERS: ADMIT Family Medicine; ATTEND Internal Medicine
PROC: 0FC98ZZ Extirpation of Matter from Common Bile Duct, Via Natural or Artificial Opening Endoscopic (ICD-10-PCS; 2017-03-31)
PROC: 0F7D8DZ Dilation of Pancreatic Duct with Intraluminal Device, Via Natural or Artificial Opening Endoscopic (ICD-10-PCS; 2017-03-31)
PROC: 0FT44ZZ Resection of Gallbladder, Percutaneous Endoscopic Approach (ICD-10-PCS; principal; 2017-04-03 10:00)
DX: A41.9 Sepsis, unspecified organism (principal); K80.43 Calculus of bile duct with acute cholecystitis with obstruction; M19.042 Primary osteoarthritis, left hand; I25.10 Atherosclerotic heart disease of native coronary artery without angina pectoris; I25.2 Old myocardial infarction; I11.9 Hypertensive heart disease without heart failure; N40.0 Benign prostatic hyperplasia without lower urinary tract symptoms; E78.5 Hyperlipidemia, unspecified; Z51.81 Encounter for therapeutic drug level monitoring; Z79.899 Other long term (current) drug therapy; Z79.82 Long term (current) use of aspirin; Z95.1 Presence of aortocoronary bypass graft; Z85.828 Personal history of other malignant neoplasm of skin; Z96.652 Presence of left artificial knee joint; Z87.891 Personal history of nicotine dependence